=== PATIENT | male | born 1955 | race Caucasian/White ===

== ENCOUNTER 2020-02-08 12:56 | Outpatient (CLI) | payer OTHER, SELFPAY ==
--- NOTE | ~2020-02-08 | XR_ITS ---
EXAMINATION: XR lg joint inject/asp w image DATE: 02/08/2020 13:56 INDICATION: Left hip osteoarthritis TECHNIQUE: A time-out was performed to verify the patient's name, date of , and procedure to b e performed. The procedure including the risks, benefits, and alternatives was discussed with the pat ient. Risks discussed included bleeding and infection. The patient understood the risks and agreed to proceed. The skin overlying the left hip joint was prepped and draped in usual sterile fashion. An esthetic was administered with 1% lidocaine subcutaneously. A 22 G needle was advanced under fluoros copic guidance into the joint. Injection of 0.8 mL of Omnipaque 240 confirmed intra-articular positi on of the needle. Subsequently, injectate consisting of 3 mm of a 2:1 mixture of 0.5% Marcaine: 80 m g/mL Depo-Medrol for a total dosage of 80 mg Depo-Medrol was instilled. Washout of contrast was seen confirming intra-articular administration. The needle was removed and the entry site was cleaned and dressed. There were no immediate complications. Fluoroscopy exposure time was 0.1 minutes. The total number of images was 2. FINDINGS: Real-time fluoroscopy demonstrates the needle in the left hip joint. Patient's pain prior t o procedure:1/10. Patient's pain following the procedure: 0/10. IMPRESSION: 1. Left hip joint injection of local anesthetic and steroid with decrease in the patient's presenting pain. Reviewed, dictated and finalized at location A. IMPRESSION: 1. Left hip joint injection of local anesthetic and steroid with decrease in th e patient's presenting pain.
== END 2020-02-08 12:57 | disposition home or self-care (01) ==
PROVIDERS: PCP Family Medicine; Visit Provider Nurse Practitioner Family
DX: M16.12 Unilateral primary osteoarthritis, left hip (principal)
CPT/HCPCS: 20610; 77002; J1040; Q9966

== ENCOUNTER 2020-08-14 10:16 | Outpatient (CLI) | payer OTHER, SELFPAY ==
--- NOTE | ~2020-08-14 | XR_ITS ---
EXAMINATION: XR lg joint inject/asp w image DATE: 08/14/2020 11:06 INDICATION: Left hip osteoarthritis presenting with pain. TECHNIQUE: A time-out was performed to verify the patient's name, date of , and procedure to b e performed. The procedure including the risks, benefits, and alternatives was discussed with the pat ient. Risks discussed included bleeding and infection. The patient understood the risks and agreed to proceed. The skin overlying the left hip joint was prepped and draped in usual sterile fashion. An esthetic was administered with 1% lidocaine subcutaneously. A 22 G needle was advanced under fluoros copic guidance into the joint. Injection of 0.3 mL of Omnipaque 240 confirmed intra-articular positi on of the needle. Subsequently, injectate consisting of 3 mm of a 2:1 mixture of 0.5% bupivacaine: 8 0 mg/mL Depo-Medrol for a total dose of 80 mg Depo-Medrol was instilled. Washout of contrast was seen confirming intra-articular administration. The needle was removed and the entry site was cleaned and dressed. There were no immediate complications. Fluoroscopy exposure time was 0.1 minutes. The tota l number of images was 2. FINDINGS: Real-time fluoroscopy demonstrates the needle in the left hip joint. Patient's pain prior t o procedure:5/10. Patient's pain following the procedure: 5/10. IMPRESSION: 1. Left hip joint injection of local anesthetic and steroid with no interval change in patient's pres enting pain. Reviewed, dictated and finalized at location A. IMPRESSION: 1. Left hip joint injection of local anesthetic and steroid with no interval ch roosevelt in patient's presenting pain.
== END 2020-08-14 10:17 | disposition home or self-care (01) ==
PROVIDERS: PCP Family Medicine; Visit Provider Nurse Practitioner Family
DX: M16.12 Unilateral primary osteoarthritis, left hip (principal)
CPT/HCPCS: 20610; 77002; J1040; Q9966

== ENCOUNTER 2021-02-21 12:40 | Outpatient (CLI) | payer OTHER, SELFPAY ==
--- NOTE | ~2021-02-21 | XR_ITS ---
EXAMINATION: XR lg joint inject/asp w image DATE: 02/21/2021 13:26 INDICATION: Left hip arthritis with pain TECHNIQUE: A time-out was performed to verify the patient's name, date of , and procedure to b e performed. The procedure including the risks, benefits, and alternatives was discussed with the pat ient. Risks discussed included bleeding and infection. The patient understood the risks and agreed to proceed. The skin overlying the left hip joint was prepped and draped in usual sterile fashion. An esthetic was administered with 1% lidocaine subcutaneously. A 22 G needle was advanced under fluoros copic guidance into the joint. Injection of 1 mL of Omnipaque 240 confirmed intra-articular position of the needle. Subsequently, injectate consisting of 3 mL of a 2:1 mixture of 0.5% Marcaine: 80 mg/ mL Depo-Medrol for a total dosage of 80 mg Depo-Medrol was instilled. Washout of contrast was seen co nfirming intra-articular administration. The needle was removed and the entry site was cleaned and dr essed. There were no immediate complications. Fluoroscopy exposure time was 0.1 minutes. The total n umber of images was 2. Total DAP was 0.933 mGycm^2 FINDINGS: Real-time fluoroscopy demonstrates the needle in the left hip joint. Patient's pain prior t o procedure:0/10. Patient's pain following the procedure: 0/10. IMPRESSION: 1. Successful left hip joint injection of local anesthetic and steroid. Reviewed, dictated and finalized at location A.
== END 2021-02-21 12:41 | disposition home or self-care (01) ==
LOC: ANHIMG 12:43
PROVIDERS: PCP Family Medicine; Visit Provider Nurse Practitioner Family
DX: M16.12 Unilateral primary osteoarthritis, left hip (principal)
CPT/HCPCS: 20610; 77002; J1040; Q9966

== ENCOUNTER 2021-08-05 12:44 | Outpatient (CLI) | payer MEDICARE, OTHER, SELFPAY ==
--- NOTE | ~2021-08-05 | XR_ITS ---
EXAMINATION: XR lg joint inject/asp w image DATE: 08/05/2021 13:30 INDICATION: Left hip arthritis. TECHNIQUE: A time-out was performed to verify the patient's name, date of , and procedure to b e performed. The procedure including the risks, benefits, and alternatives was discussed with the pat ient. Risks discussed included bleeding and infection. The patient understood the risks and agreed to proceed. The skin overlying the left hip joint was prepped and draped in usual sterile fashion. An esthetic was administered with 1% lidocaine subcutaneously. A 22 G needle was advanced under fluoros copic guidance into the joint. Injection of 1 mL of Omnipaque 240 confirmed intra-articular position of the needle. Subsequently, injectate consisting of 2 mL 0.5% bupivacaine and 2 mL 40 mg/mL Depo-M edrol was instilled. The needle was removed and the entry site was cleaned and dressed. There were no immediate complications. Fluoroscopy exposure time was 0.1 minutes. The total number of images was 2. FINDINGS: Real-time fluoroscopy demonstrates the needle in the left hip joint. Patient's pain prior t o procedure:5/10. Patient's pain following the procedure: 0/10. IMPRESSION: 1. Fluoroscopy guided left hip joint injection of local anesthetic and steroid with decrease in the p atient's presenting pain. Reviewed, dictated and finalized at location A. IMPRESSION: 1. Fluoroscopy guided left hip joint injection of local anesthetic and steroid with decrease in the patient's presenting pain.
== END 2021-08-05 12:45 | disposition home or self-care (01) ==
LOC: ANHIMG 12:47
PROVIDERS: PCP Family Medicine; Visit Provider Nurse Practitioner Family
DX: M25.552 Pain in left hip (principal)
CPT/HCPCS: 20610; 77002; J1030; Q9966

== ENCOUNTER 2022-03-19 11:03 | Outpatient (CLI) | payer MEDICARE, OTHER, SELFPAY ==
--- NOTE | ~2022-03-19 | XR_ITS ---
EXAMINATION: XR lg joint inject/asp w image DATE: 03/19/2022 12:08 INDICATION: Left hip arthritis TECHNIQUE: A time-out was performed to verify the patient's name, date of , and procedure to b e performed. The procedure including the risks, benefits, and alternatives was discussed with the pat ient. Risks discussed included bleeding and infection. The patient understood the risks and agreed to proceed. The skin overlying the left hip joint was prepped and draped in usual sterile fashion. An esthetic was administered with 1% lidocaine subcutaneously. A 22 G needle was advanced under fluoros copic guidance into the joint. Injection of a small amount of gas confirmed intra-articular position of the needle. Subsequently, injectate consisting of 2 mL of a 2:1 mixture of 0.5% bupivacaine: 80 mg/mL Depo-Medrol for a total dosage of 80 mg Depo-Medrol was instilled. The needle was removed and t he entry site was cleaned and dressed. There were no immediate complications. Fluoroscopy exposure t portia was 0.1 minutes. Total DAP was 0.566 Gycm^2 The total number of images was 2. FINDINGS: Real-time fluoroscopy demonstrates the needle in the left hip joint. Patient's pain prior t o procedure:2/10. Patient's pain following the procedure: 0/10. IMPRESSION: 1. Left hip joint injection of local anesthetic and steroid with decrease in the patient's presenting pain. Reviewed, dictated and finalized at location A. IMPRESSION: 1. Left hip joint injection of local anesthetic and steroid with decrease in th e patient's presenting pain.
== END 2022-03-19 11:04 | disposition home or self-care (01) ==
PROVIDERS: Visit Provider Nurse Practitioner Family
DX: M16.12 Unilateral primary osteoarthritis, left hip (principal)
CPT/HCPCS: 20610; 77002; J1040

== ENCOUNTER 2022-07-21 13:00 | Outpatient (CLI) | payer MEDICARE, OTHER, SELFPAY ==
--- NOTE | ~2022-07-21 | XR_ITS ---
EXAMINATION: XR lg joint inject/asp w image DATE: 07/21/2022 13:57 INDICATION: Left hip arthritis. TECHNIQUE: A time-out was performed to verify the patient's name, date of , and procedure to b e performed. The procedure including the risks, benefits, and alternatives was discussed with the pat ient. Risks discussed included bleeding and infection. The patient understood the risks and agreed to proceed. The skin overlying the left hip joint was prepped and draped in usual sterile fashion. An esthetic was administered with 1% lidocaine subcutaneously. A 22 G needle was advanced under fluoros copic guidance into the joint. Subsequently, injectate consisting of 2 mL 0.5% bupivacaine and 1 mL 80 mg/mL Depo-Medrol was instilled. The needle was removed and the entry site was cleaned and dresse d. There were no immediate complications. Fluoroscopy exposure time was 0.1 minutes. The total numbe r of images was 1. FINDINGS: Real-time fluoroscopy demonstrates the needle in the left hip joint. Patient's pain prior t o procedure:5/10. Patient's pain following the procedure: 0/10. IMPRESSION: 1. Fluoroscopy guided left hip joint injection of local anesthetic and steroid with decrease in the p atient's presenting pain. Reviewed, dictated and finalized at location A. PS [employer] IMPRESSION: 1. Fluoroscopy guided left hip joint injection of local anesthetic and steroid with decrease in the patient's presenting pain.
== END 2022-07-21 13:01 | disposition home or self-care (01) ==
PROVIDERS: Visit Provider Nurse Practitioner Family
DX: M16.12 Unilateral primary osteoarthritis, left hip (principal)
CPT/HCPCS: 20610; 77002; J1040

== ENCOUNTER 2022-11-23 12:59 | Outpatient (CLI) | payer MEDICARE, OTHER, SELFPAY ==
--- NOTE | ~2022-11-23 | XR_ITS ---
EXAMINATION: XR lg joint inject/asp w image DATE: 11/23/2022 13:42 INDICATION: Left hip arthritis. TECHNIQUE: A time-out was performed to verify the patient's name, date of , and procedure to b e performed. The procedure including the risks, benefits, and alternatives was discussed with the pat ient. Risks discussed included bleeding and infection. The patient understood the risks and agreed to proceed. The skin overlying the left hip joint was prepped and draped in usual sterile fashion. An esthetic was administered with 1% lidocaine subcutaneously. A 22 G needle was advanced under fluoros copic guidance into the joint. Subsequently, injectate consisting of 2 mL 0.5% bupivacaine and 1 mL 80 mg/mL Depo-Medrol was instilled. The needle was removed and the entry site was cleaned and dresse d. There were no immediate complications. Fluoroscopy exposure time was 0.1 minutes. The total numbe r of images was 1. FINDINGS: Real-time fluoroscopy demonstrates the needle in the left hip joint. Patient's pain prior t o procedure:2/10. Patient's pain following the procedure: 0/10. IMPRESSION: 1. Fluoroscopy guided left hip joint injection of local anesthetic and steroid with decrease in the p atient's presenting pain. Reviewed, dictated and finalized at location A. IMPRESSION: 1. Fluoroscopy guided left hip joint injection of local anesthetic and steroid with decrease in the patient's presenting pain.
== END 2022-11-23 13:00 | disposition home or self-care (01) ==
PROVIDERS: Visit Provider Orthopaedic Surgery
DX: M16.12 Unilateral primary osteoarthritis, left hip (principal)
CPT/HCPCS: 20610; 77002; J1040

== ENCOUNTER 2023-04-29 13:35 | Outpatient (CLI) | payer MEDICARE, OTHER, SELFPAY ==
--- NOTE | ~2023-04-29 | XR_ITS ---
EXAMINATION: XR lg joint inject/asp w image DATE: 04/29/2023 14:32 INDICATION: Left hip osteoarthritis with pain TECHNIQUE: A time-out was performed to verify the patient's name, date of , and procedure to b e performed. The procedure including the risks, benefits, and alternatives was discussed with the pat ient. Risks discussed included bleeding and infection. The patient understood the risks and agreed to proceed. The skin overlying the left hip joint was prepped and draped in usual sterile fashion. An esthetic was administered with 1% lidocaine subcutaneously. A 22 G needle was advanced under fluoros copic guidance into the joint. Injection of 1 mL of Omnipaque 240 confirmed intra-articular position of the needle. Subsequently, injectate consisting of left hip was instilled. Washout of contrast wa s seen confirming intra-articular administration. The needle was removed and the entry site was clean ed and dressed. There were no immediate complications. Fluoroscopy exposure time was 0.1 minutes. Th e total number of images was 2. FINDINGS: Real-time fluoroscopy demonstrates the needle in the left hip joint. Patient's pain prior t o procedure:3/10. Patient's pain following the procedure: 0/10. IMPRESSION: 1. Successful left hip joint injection of local anesthetic and steroid with decrease in the patient's presenting pain. Reviewed, dictated and finalized at location A. [employer] IMPRESSION: 1. Successful left hip joint injection of local anesthetic and steroid with dec rease in the patient's presenting pain.
== END 2023-04-29 13:36 | disposition home or self-care (01) ==
LOC: ANHIMG 13:48
PROVIDERS: Visit Provider Nurse Practitioner Family
DX: M16.12 Unilateral primary osteoarthritis, left hip (principal)
CPT/HCPCS: 20610; 77002; J1040; Q9966

== ENCOUNTER 2023-10-13 09:22 | Outpatient (CLI) | payer MEDICARE, OTHER, SELFPAY ==
--- NOTE | 2023-10-13 09:57 | ECG_ITS ---
SEE SCANNED COPY FOR CONFIRMED REPORT MTDD
[2023-10-13 10:24] LABS: Basophils Percent Auto 0.6 % (0.2-1.2); Eosinophils Absolute Auto 0.1 K/mm3 (0-0.3); Eosinophils Percent Auto 1.3 % (0-4.4); Hematocrit 47.7 % (42.0-52.0); Hemoglobin 15.9 g/dL (14.0-18.0); Immature Granulocyte Absolute 0.06 K/mm3 (0.00-0.031); Immature Granulocyte Percent A 0.9 % (0-0.5); Immature Platelet Fraction Pct 8.3 % (0.9-11.2); Lymphocytes Percent Auto 28.7 % (18.3-44.2); Mean Corpuscular HGB Conc 33.3 g/dl (32-36); Mean Corpuscular Hemoglobin 31.6 pg (26-34); Mean Corpuscular Volume 94.8 fl (80-100); Mean Platelet Volume 12.1 fl (7.4-10.4); Monocytes Absolute Auto 0.5 K/mm3 (0.1-0.6); Monocytes Percent Auto 7.6 % (2.6-8.5); Neutrophils Absolute Auto 4.3 K/mm3 (1.3-6.7); Neutrophils Percent Auto 60.9 % (45.5-73.1); Platelet Count Result 176 k/mm3 (150-375); Red Blood Count 5.03 M/mm3 (4.6-6.20); Red Cell Distribution Width 13.5 % (11.5-14.5)
[2023-10-13 10:39] LABS: Anion Gap 6 mmol/L (4-12); Blood Urea Nitrogen 30 mg/dL (9-20); Calcium 9.6 mg/dL (8.4-10.2); Carbon Dioxide 31 mmol/L (22-30); Chloride 103 mmol/L (98-107); Estimated Glomerular Filt Rate > 60; Glucose 117 mg/dL (65-110); Potassium 3.6 mmol/L (3.4-5.0); Sodium 140 mmol/L (137-145)
== END 2023-10-13 09:23 | disposition home or self-care (01) ==
PROVIDERS: Visit Provider Orthopaedic Surgery
DX: E78.00 Pure hypercholesterolemia, unspecified (principal); I10 Essential (primary) hypertension; M16.9 Osteoarthritis of hip, unspecified; R53.83 Other fatigue
CPT/HCPCS: 36415; 80048; 85025; 85055; 93005

== ENCOUNTER 2023-10-29 13:47 | Outpatient (CLI) | payer MEDICARE, OTHER, SELFPAY ==
--- NOTE | ~2023-10-29 | XR_ITS ---
EXAMINATION: XR lg joint inject/asp add DATE: 10/29/2023 14:25 INDICATION: Left hip arthritis. TECHNIQUE: A time-out was performed to verify the patient's name, date of , and procedure to b e performed. The procedure including the risks, benefits, and alternatives was discussed with the pat ient. Risks discussed included bleeding and infection. The patient understood the risks and agreed to proceed. The skin overlying the left hip joint was prepped and draped in usual sterile fashion. An esthetic was administered with 1% lidocaine subcutaneously. A 22 G needle was advanced under fluoros copic guidance into the joint. Subsequently, injectate consisting of 2 mL 0.5% bupivacaine and 1 mL 8 0 mg/mL Depo-Medrol was instilled. The needle was removed and the entry site was cleaned and dressed . There were no immediate complications. Fluoroscopy exposure time was 0.1 minutes. The total number of images was 1. FINDINGS: Real-time fluoroscopy demonstrates the needle in the left hip joint. Patient's pain prior t o procedure:11/30. Patient's pain following the procedure: 06/02. IMPRESSION: 1. Fluoroscopy guided left hip joint injection of local anesthetic and steroid with decrease in the p atient's presenting pain. Reviewed, dictated and finalized at location A. IMPRESSION: 1. Fluoroscopy guided left hip joint injection of local anesthetic and steroid with decrease in the patient's presenting pain.
== END 2023-10-29 13:48 | disposition home or self-care (01) ==
LOC: ANHIMG 13:50
PROVIDERS: Visit Provider Orthopaedic Surgery
DX: M16.12 Unilateral primary osteoarthritis, left hip (principal)
CPT/HCPCS: 20610; J1010

== ENCOUNTER 2024-03-09 16:15 | Outpatient (RCR) | payer MEDICARE, OTHER, SELFPAY | END 2024-03-20 07:48 | disposition home or self-care (01) | LOC: ANHCPREHAB 16:15 | PROVIDERS: Visit Provider Internal Medicine Cardiovascular Disease | DX: Z95.5 Presence of coronary angioplasty implant and graft (principal) | CPT/HCPCS: 93798 ==

== ENCOUNTER 2024-03-15 13:36 | Outpatient (CLI) | payer MEDICARE, OTHER, SELFPAY ==
--- NOTE | ~2024-03-15 | XR_ITS ---
EXAMINATION: XR lg joint inject/asp w image DATE: 03/15/2024 14:31 INDICATION: Left hip arthritis. TECHNIQUE: A time-out was performed to verify the patient's name, date of , and procedure to b e performed. The procedure including the risks, benefits, and alternatives was discussed with the pat ient. Risks discussed included bleeding and infection. The patient understood the risks and agreed to proceed. The skin overlying the left hip joint was prepped and draped in usual sterile fashion. An esthetic was administered with 1% lidocaine subcutaneously. A 22 G needle was advanced under fluoros copic guidance into the joint. Injection of 1 mL of Omnipaque 240 confirmed intra-articular position of the needle. Subsequently, injectate consisting of 2 mL 0.5% bupivacaine and 1 mL 80 mg/mL Depo-M edrol was instilled. The needle was removed and the entry site was cleaned and dressed. There were no immediate complications. Fluoroscopy exposure time was 0.1 minutes. The total number of images was 2. FINDINGS: Real-time fluoroscopy demonstrates the needle in the left hip joint. Patient's pain prior t o procedure:07/31. Patient's pain following the procedure: 07/31. IMPRESSION: 1. Fluoroscopy guided left hip joint injection of local anesthetic and steroid. Reviewed, dictated and finalized at location A.
== END 2024-03-15 13:37 | disposition home or self-care (01) ==
PROVIDERS: Visit Provider Orthopaedic Surgery
DX: M16.12 Unilateral primary osteoarthritis, left hip (principal)
CPT/HCPCS: 20610; 77002; J1010; Q9966

== ENCOUNTER 2024-05-01 14:13 | Outpatient (CLI) | payer MEDICARE, OTHER, SELFPAY ==
--- NOTE | 2024-05-01 14:42 | ECG_ITS ---
Test Date: 2024-05-01 14:50:31 Measurements Intervals [place] Rate: 65 P: -6 CO: 120 QRS: 6 QRSD: 99 T: 51 QT: 409 QTc: 428 Interpretive Statements SINUS RHYTHM No previous ECG available for comparison Electronically Signed On 05-01-2024 15:18:07 [employer]IST[employer] by Ruel Herrmann M.D.
[2024-05-01 15:00] LABS: Basophils Absolute Auto 0.1 K/mm3 (0.0-0.1); Basophils Percent Auto 0.7 % (0.2-1.2); Eosinophils Absolute Auto 0.2 K/mm3 (0-0.3); Eosinophils Percent Auto 2.5 % (0-4.4); Hematocrit 45.5 % (42.0-52.0); Hemoglobin 15.5 g/dL (14.0-18.0); Immature Granulocyte Absolute 0.11 K/mm3 (0.00-0.031); Immature Granulocyte Percent A 1.4 % (0-0.5); Lymphocytes Absolute Auto 1.76 K/mm3 (0.9-3.2); Lymphocytes Percent Auto 22.9 % (18.3-44.2); Mean Corpuscular HGB Conc 34.1 g/dl (32-36); Mean Corpuscular Volume 93.8 fl (80-100); Mean Platelet Volume 11.1 fl (7.4-10.4); Monocytes Absolute Auto 0.8 K/mm3 (0.1-0.6); Monocytes Percent Auto 9.8 % (2.6-8.5); Neutrophils Absolute Auto 4.8 K/mm3 (1.3-6.7); Neutrophils Percent Auto 62.7 % (45.5-73.1); Platelet Count Result 210 k/mm3 (150-375); Red Blood Count 4.85 M/mm3 (4.6-6.20); Red Cell Distribution Width 12.9 % (11.5-14.5); White Blood Count 7.7 K/mm3 (4.5-10.0)
[2024-05-01 15:11] LABS: Add Urine Microscopic? NO; Appearance Urine Clear (Clear); Bilirubin Urine Negative (Negative); Blood Urine Negative (Negative); Color Urine Yellow (Yellow); Glucose Urine UA Negative (Negative); Ketones Urine Negative (Negative); Leukocyte Esterase Ur Negative LEU/UL (Negative); Nitrate Urine Negative (Negative); Protein Urine Negative (Negative); Specific Grav Ur 1.026 (1.001-1.035); Urobilinogen Urine 0.2 mg/dL (<2.0)
[2024-05-01 15:14] LABS: Anion Gap 7 mmol/L (4-12); Blood Urea Nitrogen 37 mg/dL (9-20); Calcium 9.7 mg/dL (8.4-10.2); Carbon Dioxide 30 mmol/L (22-30); Chloride 103 mmol/L (98-107); Estimated Glomerular Filt Rate > 60; Glucose 109 mg/dL (65-110); Potassium 3.6 mmol/L (3.4-5.0); Sodium 140 mmol/L (137-145)
== END 2024-05-01 14:14 | disposition home or self-care (01) ==
PROVIDERS: Visit Provider Nurse Practitioner Family
DX: I10 Essential (primary) hypertension (principal); E78.00 Pure hypercholesterolemia, unspecified; R53.83 Other fatigue; M25.559 Pain in unspecified hip
CPT/HCPCS: 36415; 80048; 81003; 85025; 93005

== ENCOUNTER 2024-06-21 13:45 | Outpatient (CLI) | payer MEDICARE, OTHER, SELFPAY ==
--- OUTSIDE RECORDS SUMMARY | 2024-06-21 03:13 | XMS_ITS | Referral Summary ---
Author Organization [facility] at [facility] Address [address] [place] [address] Care Team Providers Care Traveling Plant Operator Name Role Phone Benigno GONSALEZ MD, Eddy Wood Primary Care Provid er Encounters Date Type Department Care Team Description 06/15/2024 3:15 PM ONCOLOGY PHARMACIST Office Visit [facility] [address] [place] [address] [place] [phone] Davin Kaur MD Dyspnea, unspecified type (Primary Dx) 06/08/2024 2:15 PM ONCOLOGY PHARMACIST Office Visit [facility] [address] [facility] [address] [place] [address] Melvi Engel NP Bilateral carotid artery stenosis (Primary Dx); Secondary hypertension; Mixed hyperlipidemia 06/08/2024 1:30 PM ONCOLOGY PHARMACIST - 06/08/2024 11:59 PM ONCOLOGY PHARMACIST Hospital Encounter [facility] Medical Office Building 2 Vascular [address] [facility] [address] [place] [address] Bilateral carotid artery stenosis Discharge Disposition: Discharge to home or self care 06/06/2024 3:30 PM ONCOLOGY PHARMACIST Office Visit [facility] [address] [facility] [address] [place] [address] Anoop Villeda Si, MD Multiple lacunar infarcts (HCC) (Primary Dx); Bilateral carotid artery stenosis 05/02/2024 Telephone [facility] [address] [place] [address] [place] [phone] Davin Kaur MD Cardiac clearance request for left total hip athroplasty from Last 3 Months Allergies Active Allergy Reactions Criticality Noted Date Comments Amoxicillin Itching Low 04/20/2014 Per chart records, ceftriaxone was administered 08/2022 Medications amLODIPine (NORVASC) 5 mg tablet Take 1 tablet (5 mg total) by mouth daily 06/26/19 21 Active metoprolol XL (TOPROL-XL) 25 mg extended release tablet Take 1 tablet (25 mg total) by mouth daily 06/26/19 21 Active simvastatin (ZOCOR) 40 mg tablet Take 1 tablet (40 mg total) by mouth daily 06/26/19 21 Active folic acid/multivit- min/lutein (CENTRUM SILVER ORAL) Take 1 tablet by mouth daily Active aspirin 81 mg enteric coated tabletIndicati ons:cerebral ischemia Take 1 tablet (81 mg total) by mouth daily 30 tablet 11 04/05/20 23 Active fluticasone propionate (FLONASE) 50 mcg/actuation nasal spray Administer 2 sprays into affected nostril(s) daily 09/09/19 24 Active clopidogreL (PLAVIX) 75 mg tablet Take 1 tablet (75 mg total) by mouth daily 30 tablet 11/08/19 24 025 Active hydroCHLOROthi azide 12.5 mg tablet Take 1 tablet (12.5 mg total) by mouth daily 30 tablet 06/15/19 25 Active acetaminophen (TYLENOL) 500 mg tablet Take 1-2 tablets (500-1,000 mg total) by mouth every 6 (six) hours as needed for pain 025 Discontinued(Th erapy completed) hydroCHLOROthi azide 12.5 mg tablet Take 1 tablet (12.5 mg total) by mouth daily 30 tablet 12/08/19 24 025 Discontinued hydroCHLOROthi azide (HYDRODIURIL) 25 mg tablet 03/24/20 24 025 Discontinued(Re order) Active Problems Problem Noted Date Diagnosed Date Dyspnea 10/13/2023 Bilateral carotid artery stenosis 05/13/2023 Assessment & Plan (06/09/2024 11:02 AM ONCOLOGY PHARMACIST): Remains asymptomatic. Moderate left ICA stenosis. Continue aspirin statin therapy and continue risk factor modifications. Follow-up in 1 year for routine surveillance with carotid duplex. Assessment & Plan (06/16/2023 11:08 AM ONCOLOGY PHARMACIST): Stable. After long discussion with the patient about his history I do not feel that this was a symptomatic carotid stenosis that led to his hospitalization. This is supported by the timeline and prior occurrence. Recommend ongoing medical therapy follow up 6 months with carotid duplex. Assessment & Plan (05/14/2023 10:45 AM ONCOLOGY PHARMACIST): CTA of the head and neck per stroke protocol 04/03/2023 shows a patent right carotid artery and a moderate stenosis to the left internal carotid artery. Patient is currently on aspirin and cholesterol medication. Denies any recurrent episodes since discharge from the hospital. Plan: Obtain a carotid duplex follow-up in 2 weeks. Osteoarthritis of left hip 04/09/2023 TIA (transient ischemic attack) 04/03/2023 BPH (benign prostatic hyperplasia) 04/03/2023 Hyperlipidemia 04/03/2023 Assessment & Plan (06/16/2023 11:07 AM ONCOLOGY PHARMACIST): Hyperlipidemia chronic and controlled. Continue Zocor. Hypertension 04/03/2023 Assessment & Plan (06/16/2023 11:07 AM ONCOLOGY PHARMACIST): Hypertension chronic and controlled. Continue current medical management. Dizziness and giddiness 08/18/2022 Assessment & Plan (08/18/2022 9:01 PM CDT): I talked with him about further evaluation. I think a lot of his balance difficulty comes from his neck problems. We can do some further testing on his inner ear. He felt like things were getting so much better that he would like to go ahead and hold off on that. He will return if problems continue. Sensorineural hearing loss (SNHL) of both ears 0 08/18/2022 Assessment & Plan (08/18/2022 9:02 PM CDT): He is high-frequency sensorineural hearing loss and we talked about that. He is already aware that he has had that. He has had some noise exposure. We talked about the additional low-frequency loss on the left side. His discrimination scores down to 88% on that side also. I suggested getting an MRI scan to further evaluate for an 8th nerve tumor. I did not feel that it was imperative however and he would like to wait and see how things go. He will call me if he changes his mind. Otherwise follow up with me as needed. Cervical spondylosis without myelopathy 04/27/20 14 Immunizations Name Administration Dates Next Due Influenza, Quadrivalent, Manjula l Culture-based MDCK, Preservative Free, Antibiotic Free, Intramuscular 02/23/2020 Influenza, Unspecified 02/23/2020 Tdap 05/03/2012 Social History Tobacco Use Types Packs/Day Years Used Date Smoking Tobacco: Former Cigarettes 1 31 Q uit: 03/30/2004 Smokeless Tobacco: Never Tobacco Cessation:Counseling Given: Not Answered [facility] Usersnapities Answer Date Recorded In the past 12 months has [employer], gas, oil, or water [employer] threatened to shut off services in your home? No 2023 Social Connection and Isolat ion Panel [NHANES] Answer Date Recorded In a typical week, how many times do you talk on the phone with family, friends, or neighbors? More than three times a week 2023 How often do you get togethe r with friends or relatives? More than three times a week 2023 How often do you attend chur ch or mormon services? Never 2023 Do you belong to any clubs o r organizations such as methodist groups, unions, fraternal or athletic groups, or school groups? No 2023 How often do you attend meet ings of the clubs or organizations you belong to? Never 2023 Are you , , di vorced, , never , or living with a partner? 2023 AUDIT-C Answer Date Recorded Q1: How often do you have a drink containing alc ohol? Monthly or less 10/19/2023 Q2: How many drinks containi ng alcohol do you have on a typical day when you are drinking? 1 or 2 10/19/2023 Q3: How often do you have si x or more drinks on one occasion? Never 10/19/2023 Overall Financial Resource Strain (CARDIA) Answe r Date Recorded How hard is it for you to pa y for the very basics like food, housing, medical care, and heating? Not hard at all 2023 Hunger Vital Sign Answer Date Recorded Within the past 12 months, y ou worried that your food would run out before you got the money to buy more. Never true 04/05/20 23 Within the past 12 months, t he food you bought just didn't last and you didn't have money to get more. Never true 2023 PRAPARE - Transportation Answer Date Re corded In the past 12 months, has l ack of transportation kept you from medical appointments or from getting medications? No 03/24 In the past 12 months, has l ack of transportation kept you from meetings, work, or from getting things needed for daily living? No 2023 Housing Stability Vital Sign Answer Petar e Recorded In the last 12 months, was t here a time when you were not able to pay the mortgage or rent on time? No 2023 In the last 12 months, how many places have you lived? 1 2023 In the last 12 months, was t here a time when you did not have a steady place to sleep or slept in a mcfp (including now)? No 2023 Personal Safety Answer Date Recorded Have you ever been in or are you currently in a harmful physical or emotional relationship or is someone making you feel afraid or unsafe? 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 Not on file Not on file Not on file Last Filed Vital Signs Vital Sign Reading Time Taken Comments Blood Pressure 138/87 06/15/2024 3:18 PM ONCOLOGY PHARMACIST Pulse 77 06/15/2024 3:18 PM ONCOLOGY PHARMACIST Temperature 36.2 ??C (97.2 ??F) 11/08/2023 9:17 AM CD T Respiratory Rate 18 2023 11:2 4 AM ONCOLOGY PHARMACIST Oxygen Saturation 95% 06/15/2024 3:18 PM ONCOLOGY PHARMACIST Inhaled Oxygen Concentration - - Weight 100.4 kg (221 lb 6.4 oz) 06/15/2024 3:18 PM ONCOLOGY PHARMACIST Height 177.8 cm (5' 10 ) 06/15/2024 3:18 PM ONCOLOGY PHARMACIST Body Mass Index 31.77 06/15/2024 3:18 PM ONCOLOGY PHARMACIST Plan of Treatment Not on file Medical Devices Implanted Type Area Pharmaceutical Botanist Device Identifier Shelf Expiration Date Model / Serial / Lot Medtronic Card Vasc Surgery 2.50 X 22mm Geo [employer] Rx Coronary Stent [id number] - S0 - [id number] Implanted:Qty: 1 on 11/08/2023 by Davin Kaur MD at [facility] Stent Medtronic Card Vasc Surgery 10/29/2025 [id number] / 0 / [id number] Procedures Procedure Name Priority Date/Time Associated Diagnosis Comments US CAROTIDS DUPLEX BILATERAL Schedule Routine, Read Routine (OP Routine) 06/08/2024 2:14 PM ONCOLOGY PHARMACIST Bilateral carotid artery stenosis CT ABDOMEN PELVIS W CONTRAST ED 09/19/2022 2:38 PM CDT from Last 3 Months or Most Recently Relevant to Health Maintenance Results * US Carotids Duplex Bilateral (06/08/2024 2:14 PM ONCOLOGY PHARMACIST) Anatomical Region Laterality Modality Vascular Bilateral Ultrasound 06/08/2024 Narrative 06/10/2024 1:09 PM ONCOLOGY PHARMACIST INMAN Job ID: [id number] INMAN Document ID: [id number] Dictated date/time: [id number] CAROTID DUPLEX REASON FOR EXAM Carotid stenosis. COMMENTS ON THE RIGHT The peak systolic velocity of CCA is 65, ICA of 62. ??Smooth heterogenous plaque in the proximal ICA. ??ECA velocity is 91. Antegrade flow noted, vertebral artery velocity of 39. COMMENTS ON THE LEFT The peak systolic velocity of CCA is 58, ICA of 132, end-diastolic velocity 40. ??Smooth heterogenous plaque in the proximal ICA. ??ECA velocity 94. ??Antegrade flow noted, vertebral artery velocity of 42. OVERALL IMPRESSION 1. Less than 50% stenosis, right internal carotid artery, with 50% to 69% stenosis on the left. 2. Antegrade flow noted, bilateral vertebral arteries. Job ID/Internal Job ID: ??[id number] us [facility] US PROCEDURES Final Res ult * CT Abdomen Pelvis W Contrast (09/19/2022 2:38 PM CDT) Anatomical Region Laterality Modality Body N/A Computed Tomogra phy 09/19/2022 3:27 PM CDT Narrative 09/19/2022 3:47 PM CDT EXAM DESCRIPTION: ?? CT ABDOMEN PELVIS W CONTRAST REASON FOR STUDY: ?? RLQ abdominal pain, appendicitis suspected (Age => 15y), RUQ, RLQ tenderness with guarding. N/V ?? Pt reports Since Thrusday I've had some pain in my right upper abd and some nausea. ?Pt denies any vomiting, fevers, or diarrhea. ??Hx of hernia repair and cholecystectomy ? TECHNIQUE: CT scan of the abdomen and pelvis performed with intravenous and ?? without ??oral contrast using helical scanning technique with dynamic intravenous contrast injection. Reconstructed coronal and sagittal MPR images reviewed. All images stored on PACS. Automated exposure control was used as a dose optimization technique for this examination. CONTRAST TYPE/DOSE: ?? 100mL of IOVERSOL 350 MG IODINE/ML INTRAVENOUS SYRINGE ?? injected via ?? intravenous COMPARISON: ?? None available REFERENCE: Per ACR white paper recommendations, unless otherwise specified no follow-up imaging is recommended for incidental renal and adrenal lesions per consensus recommendations based on imaging criteria. Further lab evaluation could be pursued based on clinical findings. FINDINGS: LOWER CHEST: ?? No significant pulmonary abnormalities. No effusion. LIVER: ?? 8 mm low attenuating lesion with fluid attenuation, possibly hepatic cyst, within hepatic segment 5/7 (2:42). GALLBLADDER: ?? Surgically absent. BILE DUCTS: ?? No intrahepatic or extrahepatic ductal dilatation. SPLEEN: ?? Normal size. ??No focal lesions. PANCREAS: ?? No identified cystic or solid masses. No significant calcifications. No adjacent inflammation or peripancreatic fluid collections. Pancreatic duct not dilated. ?? ADRENALS: ?? Normal. KIDNEYS/URINARY TRACT: ?? 20 mm fluid attenuating lesion within the midpole of left kidney, likely cyst. ??Symmetric renal enhancement. ??No hydronephrosis or hydroureter. ?Urinary bladder is unremarkable. GI: ?? No dilated bowel loops. No obvious wall thickening. ??Normal appendix. ?? No significant diverticular disease. PERITONEUM: ?? No ascites or free air. RETROPERITONEUM: ?? No mass or adenopathy. REPRODUCTIVE: ?? No significant abnormality. VASCULATURE: ?? Atherosclerotic disease in the aorta, aortic branches, and iliacs MUSCULOSKELETAL: ?? Incidentally noted 22 mm fat attenuating lesion, likely lipoma within the left iliacus muscle anterior to the left femoral neck (2:153). OTHER: ?? No other abnormality. IMPRESSION: No acute findings in the abdomen or pelvis. ??The appendix is normal. THIS IS AN ELECTRONICALLY VERIFIED FINAL REPORT 09/19/2022 3:47 PM - Electronically signed by ??Helio Lyons M.D. WW: JERICHO D: ??09/19/2022 3:46 PM T: ??09/19/2022 3:47 PM Report ID: [id number] Reading Location: ??[id number] Procedure Note Helio Lyons MD PhD - 09/19/2022 EXAM DESCRIPTION: CT ABDOMEN PELVIS W CONTRAST REASON FOR STUDY: RLQ abdominal pain, appendicitis suspected (Age =>15y), RUQ, RLQ tenderness with guarding. N/V Pt reports Since Thrusday I've had some pain in my right upper abd andsome nausea. Pt denies any vomiting, fevers, or diarrhea. Hx of hernia repair and cholecystectomy TECHNIQUE: CT scan of the abdomen and pelvis performed with intravenousand without oral contrast using helical scanning technique with dynamic intravenous contrast injection. Reconstructed coronal and sagittal MPRimages reviewed. All images stored on PACS. Automated exposure control was used as a dose optimization technique forthis examination. CONTRAST TYPE/DOSE: 100mL of IOVERSOL 350 MG IODINE/ML INTRAVENOUSSYRINGE injected via intravenous COMPARISON: None available REFERENCE: Per ACR white paper recommendations, unless otherwise specifiedno follow-up imaging is recommended for incidental renal and adrenal lesionsper consensus recommendations based on imaging criteria. Further labevaluation could be pursued based on clinical findings. FINDINGS: LOWER CHEST: No significant pulmonary abnormalities. Noeffusion. LIVER: 8 mm low attenuating lesion with fluid attenuation, possiblyhepatic cyst, within hepatic segment 5/7 (2:42). GALLBLADDER: Surgically absent. BILE DUCTS: No intrahepatic or extrahepatic ductal dilatation. SPLEEN: Normal size. No focal lesions. PANCREAS: No identified cystic or solid masses. No significant calcifications. No adjacent inflammation or peripancreatic fluidcollections. Pancreatic duct not dilated. ADRENALS: Normal. KIDNEYS/URINARY TRACT: 20 mm fluid attenuating lesion within the midpoleof left kidney, likely cyst. Symmetric renal enhancement. No hydronephrosisor hydroureter. Urinary bladder is unremarkable. GI: No dilated bowel loops. No obvious wall thickening. Normalappendix. No significant diverticular disease. PERITONEUM: No ascites or free air. RETROPERITONEUM: No mass or adenopathy. REPRODUCTIVE: No significant abnormality. VASCULATURE: Atherosclerotic disease in the aorta, aortic branches, and iliacs MUSCULOSKELETAL: Incidentally noted 22 mm fat attenuating lesion, likely lipoma within the left iliacus muscle anterior to the left femoral neck (2:153). OTHER: No other abnormality. IMPRESSION: No acute findings in the abdomen or pelvis. The appendix is normal. THIS IS AN ELECTRONICALLY VERIFIED FINAL REPORT 09/19/2022 3:47 PM - Electronically signed by Helio Lyons M.D. WW: JERICHO Report ID: [id number] Reading Location: [place] [address] PROCEDURES Final Re sult from Last 3 Months or Most Recently Relevant to Health Maintenance Insurance MEDICARE [facility] PPO FOR LIFE MEDICARE FOR LIFE AETCAMRYN NAP Advance Directives For more information, please contact: [phone] * Full Code (Latest Code Status on File) Date Activated Date Inactivated Comments 11/08/2023 11:47 AM 11/08/2023 6:44 PM * Full Code Date Activated Date Inactivated Comments 10/19/2023 4:24 PM 10/19/2023 10:58 PM * Full Code Date Activated Date Inactivated Comments 04/04/2023 3:43 AM 2023 6:02 PM Care Teams Traveling Plant Operator Relationship Specialty Start Date End Date Eddy Pelaez II, MD PCP - General Family Practice 02/18/22
--- OUTSIDE RECORDS SUMMARY | 2024-06-21 03:13 | XMS_ITS | Clinical Summary ---
Author Organization [facility] Address [address] [place] [address] Care Team Providers Care Machine Packager Name Role Phone Benigno GONSALEZ MD, Eddy Wood Primary Care Provid er Allergies Active Allergy Reactions Criticality Noted Date [...] mg total) by mouth daily 30 tablet 04/05/20 23 Active fluticasone propionate (FLONASE) 50 [...] total) by mouth daily 30 tablet 11 12/08/19 24 025 Discontinued hydroCHLOROthi azide (HYDRODIURIL) 25 mg tablet 03/24/20 24 025 Discontinued(Re order) Active Problems Problem Noted Date Diagnosed Date Dyspnea 10/13/2023 Bilateral carotid artery stenosis 05/13/2023 Assessment & Plan (06/09/2024 11:02 AM ORTHODONTIC TECHNICIAN ASSISTANT): Remains asymptomatic. Moderate left ICA stenosis. Continue aspirin statin therapy and continue risk factor modifications. Follow-up in 1 year for routine surveillance with carotid duplex. Assessment & Plan (06/16/2023 11:08 AM ORTHODONTIC TECHNICIAN ASSISTANT): Stable. After long discussion with the patient about his history I do not feel that this was a symptomatic carotid stenosis that led to his hospitalization. This is supported by the timeline and prior occurrence. Recommend ongoing medical therapy follow up 6 months with carotid duplex. Assessment & Plan (05/14/2023 10:45 AM ORTHODONTIC TECHNICIAN ASSISTANT): CTA of the head and neck per [...] 04/03/2023 Assessment & Plan (06/16/2023 11:07 AM ORTHODONTIC TECHNICIAN ASSISTANT): Hyperlipidemia chronic and controlled. Continue Zocor. Hypertension 04/03/2023 Assessment & Plan (06/16/2023 11:07 AM ORTHODONTIC TECHNICIAN ASSISTANT): Hypertension chronic and controlled. Continue current medical [...] needed. Cervical spondylosis without myelopathy 04/27/20 14 Encounters Date Type Department Care Team Description 06/15/2024 3:15 PM ORTHODONTIC TECHNICIAN ASSISTANT Office Visit [facility] Cardiology [address] [place] [id number] Davin Kaur MD Dyspnea, unspecified type (Primary Dx) 06/08/2024 2:15 PM ORTHODONTIC TECHNICIAN ASSISTANT Office Visit [facility] Vascular and Vein Surgery [address] [place] [address] Melvi Engel NP Bilateral carotid artery stenosis (Primary Dx); Secondary hypertension; Mixed hyperlipidemia 06/08/2024 1:30 PM ORTHODONTIC TECHNICIAN ASSISTANT - 06/08/2024 11:59 PM ORTHODONTIC TECHNICIAN ASSISTANT Hospital Encounter [facility] Building 2 Vascular [address] [place] [address] Bilateral carotid artery stenosis Discharge Disposition: Discharge to home or self care 06/06/2024 3:30 PM ORTHODONTIC TECHNICIAN ASSISTANT Office Visit [facility] Neurology [address] [place] [phone] Anoop Villeda Si, MD Multiple lacunar infarcts (HCC) (Primary Dx); Bilateral carotid artery stenosis 05/02/2024 Telephone [facility] Cardiology [address] [place] [address] Davin Kaur MD Cardiac clearance request for left total hip athroplasty from Last 3 Months Immunizations Name Administration Dates Next Due Influenza, Quadrivalent, Manjula l Culture-based MDCK, Preservative Free, Antibiotic Free, Intramuscular 02/23/2020 Influenza, Unspecified 02/23/2020 Tdap 05/03/2012 Surgical History Surgery Date Site/Laterality Comments HERNIA REPAIR SPINAL FUSION 05/24/2015 - 05/23/2016 C3-C4, C5-C6 CARDIAC CATHETERIZATION 10/19/2023 ANGIOPLASTY 12/08/2023 CHOLECYSTECTOMY 1987 Medical History Medical History Date Comments Hyperlipidemia Hypertension Heart disease Kidney stone TIA (transient ischemic attack) 03/2023 Sleep apnea Family History Medical History Relation Name Comments Heart disease Father Kali Goldberg Stroke Father Kali Goldberg Blood Clot Mother Relation Name Status Comments Father Kali Goldberg Mother Social History Tobacco Use Types Packs/Day Years Used Date Smoking Tobacco: Former Cigarettes 1 31 Q uit: 03/30/2004 Smokeless Tobacco: Never Tobacco Cessation:Counseling Given: Not Answered [facility] Utilities Answer Date Recorded In the past 12 months has e electric, gas, oil, or water company threatened to shut off services in your [...] often do you attend chur ch or adventist services? Never 2023 Do you belong to any clubs o r organizations such as restorationist groups, unions, fraternal or athletic groups, or [...] place to sleep or slept in a group home (including now)? No 2023 Personal Safety Answer Date Recorded Have you ever been in or are you currently in a harmful physical or emotional relationship or is someone making you feel afraid or unsafe? 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 Not on file Not on file Obstetrics History Last Filed Vital Signs Vital Sign Reading Time Taken Comments Blood Pressure 138/87 06/15/2024 3:18 PM ORTHODONTIC TECHNICIAN ASSISTANT Pulse 77 06/15/2024 3:18 PM ORTHODONTIC TECHNICIAN ASSISTANT Temperature 36.2 ??C (97.2 ??F) 11/08/2023 9:17 AM CD T Respiratory Rate 18 2023 11:2 4 AM ORTHODONTIC TECHNICIAN ASSISTANT Oxygen Saturation 95% 06/15/2024 3:18 PM ORTHODONTIC TECHNICIAN ASSISTANT Inhaled Oxygen Concentration - - Weight 100.4 kg (221 lb 6.4 oz) 06/15/2024 3:18 PM ORTHODONTIC TECHNICIAN ASSISTANT Height 177.8 cm (5' 10 ) 06/15/2024 3:18 PM ORTHODONTIC TECHNICIAN ASSISTANT Body Mass Index 31.77 06/15/2024 3:18 PM ORTHODONTIC TECHNICIAN ASSISTANT Plan of Treatment Health Maintenance Due Date Last Done Comments Colon Cancer Screening-Colonoscopy 1955 Depression Screening 1955 Hepatitis C Screening 1955 Prostate Cancer Screening-PSA 1956 Hepatitis B Screening 1974 Zoster Vaccine (1 of 2) 2006 Pneumococcal vaccine 65+ (1 of 1 - PCV) 2021 Well Visit 65+ 2021 DTaP/Tdap/Td Vaccine (2 - Td or Tdap) 05/03/202203/2012 Covid-19 Vaccine ( - season) 2024 06/04/2021, 07/16/2020, 06/26/2020 Influenza Vaccine (#1) 2024 02/23/2020, 2019 Fall Risk Assessment 2024 2023 Abdominal Aortic Aneurysm (A AA) Screen Completed 09/19/2022 Medical Devices Implanted Type Area Bottle Hop Device Identifier Shelf Expiration Date Model / Serial / Lot Medtronic Card Vasc Surgery 2.50 X 22mm Dovray Angelina Rx Coronary Stent [id number] - S0 - [id number] Implanted:Qty: 1 on 11/08/2023 by Davin Kaur MD at [facility] Stent Medtronic Card Vasc Surgery 10/29/2025 [id number] / 0 / [id number] Procedures Procedure Name Priority Date/Time Associated Diagnosis Comments US CAROTIDS DUPLEX BILATERAL Schedule Routine, Read Routine (OP Routine) 06/08/2024 2:14 PM ORTHODONTIC TECHNICIAN ASSISTANT Bilateral carotid artery stenosis CT ABDOMEN PELVIS W CONTRAST ED 09/19/2022 2:38 PM CDT from Last 3 Months or Most Recently Relevant to Health Maintenance Results * US Carotids Duplex Bilateral (06/08/2024 2:14 PM ORTHODONTIC TECHNICIAN ASSISTANT) Anatomical Region Laterality Modality Vascular Bilateral Ultrasound 06/08/2024 Narrative 06/10/2024 1:09 PM ORTHODONTIC TECHNICIAN ASSISTANT [employer] Job ID: [id number] [employer] Document ID: [id number] Dictated date/time: [id number] CAROTID DUPLEX REASON FOR EXAM Carotid stenosis. [...] bilateral vertebral arteries. Job ID/Internal Job ID: ??[id number] us Pauline BAIN IMArmand US PROCEDURES Final Res ult * CT [...] PM T: ??09/19/2022 3:47 PM Report ID: [id number] Reading Location: ??[id number] Procedure Note Helio Lyons MD PhD - [...] Helio Lyons M.D. WW: JERICHO Report ID: [id number] Reading Location: [id number] Tad BAIN IMG CT PROCEDURES Final Re sult from Last 3 Months or Most Recently Relevant to Health Maintenance Insurance MEDICARE [facility] Address: [address] [address] [place] [address] [facility] ison furniture MEDICARE [facility] Advance Directives For more information, please contact: [phone] * Full Code (Latest Code Status on File) Date Activated Date Inactivated Comments 11/08/2023 11:47 AM 11/08/2023 6:44 PM * Full Code Date Activated Date Inactivated Comments 10/19/2023 4:24 PM 10/19/2023 10:58 PM * Full Code Date Activated Date Inactivated Comments 04/04/2023 3:43 AM 2023 6:02 PM Care Teams Machine Packager Relationship Specialty Start Date End Date Eddy Pelaez II, MD PCP - General Family Practice 02/18/22
--- OUTSIDE RECORDS SUMMARY | 2024-06-21 03:13 | XMS_ITS | Patient Health Summary ---
Author Organization [facility] Address [address] [place] [address] Care Team Providers Care Tile Conduit Layer Name Role Phone Unavailable Primary Care Provider Unavailabl e Note from [facility],non-owned Affiliates and Associated Physician Practices is amultiple site organization consisting of ambulatory clinics and hospital sitesin [place] and [place]. This disclosure is being madepursuant to the Care Everywhere program and may not contain all information available regarding this patient. Last updated 18.[facility] Immunizations * Covid Pfizer primary monovalent 12+ yr 0.3mL Purple cap(Given 07/16/2020, 06/26/2020) Social History Tobacco Use Types Packs/Day Years Used Date Smoking Tobacco: Never Assessed Sex and Gender Information Value Date Recorded Sex Assigned at Not on file Gender Identity Not on file Sexual Orientation Not on file
--- OUTSIDE RECORDS SUMMARY | 2024-06-21 03:13 | XMS_ITS | Clinical Summary ---
Author Organization [facility] Address [address] [place] [address] Care Team Providers Care Mamma Logist Name Role Phone Unavailable Primary Care Provider Unavailabl e Source Comments [facility],non-owned Affiliates and Associated Physician Practices is amultiple site organization consisting of ambulatory clinics and hospital sitesin [place] and [place]. This disclosure is being madepursuant to the Care Everywhere program and may not contain all information available regarding this patient. Last updated 18.[facility] Immunizations Name Administration Dates Next Due Covid Pfizer primary monoval ent 12+ yr 0.3mL Purple cap 07/16/2020,06/26/2020 Social History Tobacco Use Types Packs/Day Years Used Date Smoking Tobacco: Never Assessed Sex and Gender Information Value Date Recorded Sex Assigned at Not on file Gender Identity Not on file Sexual Orientation Not on file Plan of Treatment Health Maintenance Due Date Last Done Comments COLOGUARD (AGES 45-75) - COL ON CA SCREENING 1956 COLON MONITORING 1956 COLONOSCOPY - COLON CA SCREENING 1956 CT COLONOGRAPHY - COLON CA SCREENING 1955 Colorectal Cancer Screening 1956 FIT - COLON CA SCREENING 1956 FLEX SIG - COLON CA SCREENING 1956 LIPID TESTING 1956 HEPATITIS C SCREENING 04/01/1974 DTAP/TDAP/TD VACCINES (1 - Tdap) 1975 PNEUMOCOCCAL VACCINE 50+ (1 of 1 - PCV) 2006 ZOSTER VACCINE (1 of 2) 2006 COVID-19 VACCINE (3 - 2023-2 5 season) 2024 07/16/2020, 06/26/2020 INFLUENZA VACCINE (#1) 2024 DEPRESSION SCREENING 05/24/2024 Respiratory Syncytial Virus (RSV) Vaccine Pt: or over 60 yrs (1 - 1-dose 75+ series) 2031 HEPATITIS B VACCINE Aged Out No longe r eligible based on patient's age to complete this topic HIB VACCINE Aged Out No longer eligi ble based on patient's age to complete this topic HPV VACCINE Aged Out No longer eligi ble based on patient's age to complete this topic MENINGOCOCCAL (Group B) VACCINE Aged Out No longer eligible b ased on patient's age to complete this topic MENINGOCOCCAL VACCINE Aged Out No mana mayelin eligible based on patient's age to complete this topic
--- OUTSIDE RECORDS SUMMARY | 2024-06-21 03:13 | XMS_ITS | Clinical Summary ---
Author Organization [facility] Address [address] [place] [address]. [place] [address] [place] [address] Care Team Providers Care Heel Breaster Name Role Phone Benigno GONSALEZ MD, Eddy Gilliland Primary Care Provider Allergies Active Allergy Reactions Criticality Noted Date Comments Amoxicillin Itching Low 04/20/2014 Medications Multiple Vitamins-Minerals (CENTRUM ADULTS OR) Take 1 tablet by mouth daily. Active amLODIPine (NORVASC) 5 MG tabletIndications: Primary hypertension Take 1 tablet (5 mg total) by mouth daily. 90 tablet 3 08/19/19 24 Active hydroCHLOROthiazid e (HYDRODIURIL) 25 MG tabletIndications: Primary hypertension Take 1 tablet (25 mg total) by mouth every morning. 90 tablet 3 09/09/19 24 Active Additional Information Patient taking differently: 12.5 mgOral Every morning, Reported on 06/19/2024 fluticasone propionate (FLONASE) 50 MCG/ACT nasal sprayIndications:N on-seasonal allergic rhinitis, unspecified trigger 2 sprays by Each Nostril route daily. 48 g 3 09/09/19 24 Active clopidogrel (PLAVIX) 75 MG tablet Take 1 tablet (75 mg total) by mouth daily. 11/08/19 24 025 Active simvastatin (ZOCOR) 40 MG tabletIndications: Mixed hyperlipidemia Take 1 tablet (40 mg total) by mouth daily. 90 tablet 3 04/17/20 24 Active metoprolol succinate ER (TOPROL-XL) 25 MG 24 hr tabletIndications: Primary hypertension TAKE 1 TABLET(25 MG) BY MOUTH DAILY 90 tablet 3 04/24/20 24 Active aspirin EC (ECOTRIN) 81 MG tablet Take 1 tablet (81 mg total) by mouth daily. Active Active Problems Problem Noted Date Diagnosed Date Prediabetes 04/26/2023 TIA (transient ischemic attack) 04/06/2023 Left carotid stenosis 04/06/2023 Hypertension BPH (benign prostatic hyperplasia) Osteoarthritis of left hip Hyperlipidemia Encounters Date Type Department Care Team Description 06/19/2024 4:20 PM MD PSYCHIATRY Office Visit [address] [phone] Eddy Pelaez II, MD Hypertension Follow Up (Patient presents to follow up for hypertension and lab results) 06/19/2024 Travel 06/19/2024 Patient Outreach [address] [phone] Eddy Pelaez II, MD Pre-visit Gap Closure 06/14/[address] [phone] Eddy Pelaez II, MD Information 04/21/[address] [phone] Eddy Pelaez II, MD Medication Request 04/17/[address] [phone] Eddy Pelaez II, MD Refill Request from Last 3 Months Immunizations Name Administration Dates Next Due Flucelvax 6 Months+ (Prefilled Syringe) 02/23/20 20 Influenza Adult (Generic) 02/23/2020 PFIZER COVID-19 (ORIGINAL FO RMULATION, PURPLE CAP) mRNA, LNP-S, PF, 30 MCG/0.3 ML DOSE 06/04/2021 Tdap (Generic) 05/03/2012 Family History Medical History Relation Comments Heart Disease Father Hypertension Father Stroke Father No Known Problems Sister 2 Cancer Sister 3 Hypertension Sister 3 Relation Status Comments Brother Father Mother Sister 1 Sister 2 Alive Sister 3 Alive Social History Tobacco Use Types Packs/Day Years Used Date Smoking Tobacco: Former Cigarettes 1 35 1 969 - 2004 Smokeless Tobacco: Never Tobacco Cessation:Counseling Given: No Alcohol Use Standard Drinks/Week Comments Yes 0 (1 standard drink = 0.6 oz pur e alcohol) social PHQ-2 Answer Date Recorded Patient Health Questionnaire-2 Score 0 06/19/2024 Education Answer Date Recorded What is the highest level of school you have completed or the highest degree you have received? 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 Not on file Not on file Not on file Last Filed Vital Signs Vital Sign Reading Time Taken Comments Blood Pressure 134/78 06/19/2024 4:33 PM MD PSYCHIATRY Pulse 78 06/19/2024 4:22 PM MD PSYCHIATRY Temperature 36.7 ??C (98.1 ??F) 06/19/2024 4:22 PM CS T Respiratory Rate 16 08/26/2023 7:20 AM CDT Oxygen Saturation 97% 06/19/2024 4:22 PM MD PSYCHIATRY Inhaled Oxygen Concentration - - Weight 98.9 kg (218 lb) 06/19/2024 4:22 PM MD PSYCHIATRY Height 180.3 cm (5' 11 ) 08/26/2023 7:20 AM CDT Body Mass Index 30.4 08/26/2023 7:20 AM CDT Plan of Treatment Upcoming Encounters Date Type Department Care Team (Late st Contact Info) Description 08/25/2024 11:40 AM CDT Office Visit [facility] [address] [place] [phone] Nazario Womack DO [address] [place] [address] 09/18/2024 4:20 PM CDT Office Visit [facility] [place] [address] [place] [phone] Eddy Pelaez II, MD [address] [place] [address] Health Maintenance Due Date Last Done Comments Pneumococcal Vaccine: 65+ Years (1 of 2 - PCV) 1962 Zoster Vaccines (1 of 2) 2006 RSV Immunization or 60+ Years (1 - Risk 60-74 years 1-dose series) 2016 Annual Medicare Wellness Visit 2021 DTaP, Tdap and Td Vaccines ( 2 - Td or Tdap) 05/03/2022 05/03/2012 COVID-19 Vaccine (4 - 2023-2 5 season) 2024 06/04/2021, 07/16/2020, 06/26/2020 Influenza Adult (#1) 2024 02/23/2020, 02/23/2020 Colorectal Cancer Screening Colonoscopy (10 Years) 01/19/2027 01/19/2017 Hepatitis C Completed 11/15/2021 AAA SCREENING Completed 10/13/2023, 09/19/2022, 09/19/2022 PHQ-2 (Physician Isabela) Completed 06/19/2024 Meningococcal B Vaccine Aged Out No l onger eligible based on patient's age to complete this topic Meningococcal Vaccine Aged Out No mana mayelin eligible based on patient's age to complete this topic RSV Immunizations Under 20 Months Aged Out No longer eligible b ased on patient's age to complete this topic Medical Devices Implanted Type Area Blood Bank Coordinator Device Identifier Shelf Expiration Date Model / Serial / Lot Urolift - [id number] Implanted:Qt y: 2 on 04/02/2022 by Rao Villeda MD at [facility] Urology N/A: Prostate TELE[employer]LEX [employer]ICAL [id number] 09/30/2023 [id number] / / [id number] Urolift - [id number] Implanted:Qt y: 2 on 04/02/2022 by R[facility]illeda MD at [facility] U[facility] N/A: Prostate TELEFLEX MEDICAL [id number] 10/22/2023 [id number] / / [id number] Urolift - [id number] Implanted:Qt y: 2 on 04/02/2022 by Rao Villeda MD at [facility] Urology N/A: Prostate TELEFLEX MEDICAL [id number] 09/24/2023 [id number] / / [id number] Procedures Procedure Name Priority Date/Time Associated Diagnosis Comments PROSTATE SPECIFIC ANTIGEN,SCREENING Routine 06/17/2024 9:41 AM MD PSYCHIATRY Prostate cancer screening LIPID PANEL Routine 06/17/2024 9:41 AM MD PSYCHIATRY Mixed hyperlipidemia COMPREHENSIVE METABOLIC PANEL Routine 06/17/2024 9:41 AM MD PSYCHIATRY Primary hypertension CBC W/DIFF AUTOMATED Routine 06/17/2024 9:41 AM MD PSYCHIATRY Primary hypertension HEMOGLOBIN, GLYCOSYLATED Routine 06/17/2024 9:41 AM MD PSYCHIATRY Prediabetes HEPATITIS C ANTIBODY W/RFX TO HCV RNA Routine 11/15/2021 9:29 AM CDT COLONOSCOPY GENERIC (SCAN ORDER) 01/19/2017 from Last 3 Months or Most Recently Relevant to Health Maintenance Results * (ABNORMAL) HEMOGLOBIN, GLYCOSYLATED (06/17/2024 9:41 AM MD PSYCHIATRY) HGB A1C 6.0(H) 4.8 - 5.6 % [facility] 1 Comment: ? Prediabetes: 5.7 - 6.4 ? Diabetes: >6.4 ? Glycemic control for adults with diabetes: <7.0 06/17/2024 9:41 AM MD PSYCHIATRY 06/17/2024 Narrative [facility] - 06/18/2024 9:07 AM MD PSYCHIATRY Performed at: ??01 - [facility] [address] ??[id number] Guide Plant: Calvin Escudero PhD, Phone: ??[phone] Eddy Pelaez II, MD LABORATORY Final R esult Performing Organization Address [facility] de Phone Number [facility] [address] [place] [address] [facility] * PROSTATE SPECIFIC ANTIGEN,SCREENING (06/17/2024 9:41 AM MD PSYCHIATRY) PSA 2.8 0.0 - 4.0 ng/mL [facility] 1 Comment: Scarlet ECLIA methodology. According to the [place] [employer], Serum PSA should decrease and remain at undetectable levels after radical prostatectomy. The AUA defines biochemical recurrence as an initial PSA value 0.2 ng/mL or greater followed by a subsequent confirmatory PSA value 0.2 ng/mL or greater. Values obtained with different assay methods or kits cannot be used interchangeably. Results cannot be interpreted as absolute evidence of the presence or absence of malignant disease. 06/17/2024 9:41 AM MD PSYCHIATRY 06/17/2024 Narrative [facility] - 06/18/2024 9:07 AM MD PSYCHIATRY Performed at: ??01 - [facility] [address] ??[id number] Guide Plant: Calvin Escudero PhD, Phone: ??[phone] Eddy Pelaez II, MD LABORATORY Final R esult Performing Organization Address [facility] de Phone Number [facility] [address] [place] [address] [facility] * (ABNORMAL) COMPREHENSIVE METABOLIC PANEL (06/17/2024 9:41 AM MD PSYCHIATRY) GLUCOSE 107(H) 70 - 99 mg/dL [facility] 1 BUN 25 8 - 27 mg/dL [facility] 1 CREATININE S/P/B 1.19 0.76 - 1.27 mg/dL [facility] 1 GFR ESTIMATE 67 >59 mL/min/1.7 3 [facility] 1 BUN CREATININE RATIO 21 10 - 24 [facility] 1 SODIUM S/P/B 143 134 - 144 mmol/L [facility] 1 POTASSIUM S/P/B 4.2 3.5 - 5.2 mmol/L [facility] 1 Comment: Specimen received hemolyzed. Value may be increased by hemolysis. Clinical correlation indicated. CHLORIDE S/P/B 102 96 - 106 mmol/L [facility] 1 CO2 23 20 - 29 mmol/L [facility] 1 CALCIUM S/P/B 9.9 8.6 - 10.2 mg/dL [facility] 1 TOTAL PROTEIN S/P/B 6.9 6.0 - 8.5 g/dL [facility] 1 ALBUMIN S/P/B 4.7 3.9 - 4.9 g/dL [facility] 1 GLOBULIN 2.2 1.5 - 4.5 g/dL [facility] 1 BILIRUBIN TOTAL S/P/B 0.4 0.0 - 1.2 mg/dL [facility] 1 ALKALINE PHOSPHATASE S/P/B 81 44 - 121 IU/L [facility] 1 AST 38 0 - 40 IU/L [facility] 1 ALT 30 0 - 44 IU/L [facility] 1 06/17/2024 9:41 AM MD PSYCHIATRY 06/17/2024 Narrative [facility] - 06/18/2024 9:07 AM MD PSYCHIATRY Performed at: ??01 - [facility] [address] ??[id number] Guide Plant: Calvin Escudero PhD, Phone: ??[phone] Eddy Pelaez II, MD LABORATORY Final R esult [facility] [address] [place] [address] [facility] * (ABNORMAL) LIPID PANEL (06/17/2024 9:41 AM MD PSYCHIATRY) CHOLESTEROL 146 100 - 199 mg/dL [facility] 1 TRIGLYCERIDES 198(H) 0 - 149 mg/dL [facility] 1 HDL 47 >39 mg/dL [facility] 1 VLDL CALCULATION 33 5 - 40 mg/dL [facility] 1 LDL (CALCULATED) 66 0 - 99 mg/dL [facility] 1 06/17/2024 9:41 AM MD PSYCHIATRY 06/17/2024 Narrative [facility] - 06/18/2024 9:07 AM MD PSYCHIATRY Performed at: ??01 - [facility] [address] ??[id number] Guide Plant: Calvin Escudero PhD, Phone: ??[phone] Eddy Pelaez II, MD LABORATORY Final R esult [facility] [address] [place] [address] [facility] * CBC W/DIFF AUTOMATED (06/17/2024 9:41 AM MD PSYCHIATRY) Pathologist [facility] WBC 7.6 3.4 - 10.8 x10E3/uL [facility] 1 RBC 5.03 4.14 - 5.80 x10E6/uL [facility] 1 HGB 15.6 13.0 - 17.7 g/dL [facility] 1 HCT 47.6 37.5 - 51.0 % [facility] 1 MCV 95 79 - 97 fL [facility] 1 MCH 31.0 26.6 - 33.0 pg [facility] 1 MCHC 32.8 31.5 - 35.7 g/dL [facility] 1 RDW 12.9 11.6 - 15.4 % [facility] 1 PLATELET COUNT 218 150 - 450 x10E3/uL [facility] 1 NEUTROPHILS % 63 Not Estab. % [facility] 1 LYMPHOCYTES % 23 Not Estab. % [facility] 1 MONOCYTES % 9 Not Estab. % [facility] 1 EOSINOPHILS % 3 Not Estab. % [facility] 1 BASOPHILS % 1 Not Estab. % [facility] 1 ABS. NEUTROPHILS 4.9 1.4 - 7.0 x10E3/uL [facility] 1 ABS. LYMPHOCYTES 1.7 0.7 - 3.1 x10E3/uL [facility] 1 MONOCYTES 0.7 0.1 - 0.9 x10E3/uL [facility] 1 ABS. EOSINOPHILS 0.2 0.0 - 0.4 x10E3/uL [facility] 1 ABS. BASOPHILS 0.1 0.0 - 0.2 x10E3/uL [facility] 1 ABS. IMMATURE GRANULOCYTES 1 Not Estab. % [facility] 1 ABS. IMMATURE GRANULOCYTES 0.1 0.0 - 0.1 x10E3/uL [facility] 1 06/17/2024 9:41 AM MD PSYCHIATRY 06/17/2024 Narrative [facility] - 06/18/2024 9:07 AM MD PSYCHIATRY Performed at: ??01 - [facility] [address], [place], [place] ??[id number] Guide Plant: Calvin Escudero PhD, Phone: ??[phone] Eddy Pelaez II, MD LABORATORY Final R esult Performing Organization Address [facility] Co de Phone Number [facility] [address] [place] [address] [facility] * HEPATITIS C ANTIBODY W/RFX TO HCV RNA (11/15/2021 9:29 AM CDT) HEPATITIS C AB NON-REACTI VE NON-REACT ALLIE [facility] SIGNAL TO CUTOFF 0.01 <[address] [facility] Comment: HCV antibody was non-reactive. There is no laboratory evidence of HCV infection. In most cases, no further action is required. However, if recent HCV exposure is suspected, a test for HCV RNA (test code 25063) is suggested. For additional information please refer to http://education.[employer]/faq/VYC18y6 (This link is being provided for informational/ educational purposes only.) 11/15/2021 9:29 AM CDT 11/15/2021 9:32 AM CDT Narrative [facility] - 11/17/2021 2:26 PM CDT FASTING:YES FASTING: YES Eddy Pelaez II, MD LABORATORY Final R esult Performing Organization Address [facility]/ZIP Co de Phone Number [facility] [address] [address] [phone] * COLONOSCOPY GENERIC (01/19/2017) 01/19/2017 Narrative 01/19/2017 Ordered by an unspecified provider. us Documents Scanned SCANNING Final Result from Last 3 Months or Most Recently Relevant to Health Maintenance Insurance [employer] [facility] Care Teams Heel Breaster Relationship Specialty Start Date End Date Eddy Pelaez II, MD [address] [place] [id number] PCP - General FAMILY PRACTICE 06/02/21
--- OUTSIDE RECORDS SUMMARY | 2024-06-21 03:13 | XMS_ITS | Referral Summary ---
Author Organization [facility] Address [address] [place] [address] Care Team Providers Care Car Cleaner Name Role Phone Unavailable Primary Care Provider Unavailabl e Source Comments [facility],non-owned Affiliates and Associated Physician Practices is amultiple site organization consisting of ambulatory clinics and hospital sitesin [place], [place]. This disclosure is being madepursuant to the Care Everywhere program and may not contain all information available regarding this patient. Last updated 18.[facility] Immunizations Name Administration Dates Next Due Covid Pfizer primary monoval ent 12+ yr 0.3mL Purple cap 07/16/2020,06/26/2020 Social History Tobacco Use Types Packs/Day Years Used Date Smoking Tobacco: Never Assessed Sex and Gender Information Value Date Recorded Sex Assigned at Not on file Gender Identity Not on file Sexual Orientation Not on file Plan of Treatment Not on file
--- OUTSIDE RECORDS SUMMARY | 2024-06-21 14:36 | XMS_ITS | Patient Health Summary ---
Author Organization [facility] Address [address] [address] Care Team Providers Care Tar Kettle Runner Name Role Phone Unavailable Primary Care Provider Unavailabl e Note from [facility],non-owned Affiliates and Associated Physician Practices is amultiple site organization consisting of ambulatory clinics and hospital sitesin [place], [place], [place] and [place]. This disclosure is being madepursuant to the Care Everywhere program and may not contain all information available regarding this patient. Last updated 18.[facility] Immunizations * Covid Pfizer primary monovalent 12+ yr 0.3mL Purple cap(Given 07/16/2020, 06/26/2020) Social History Tobacco Use Types Packs/Day Years Used Date Smoking Tobacco: Never Assessed Sex and Gender Information Value Date Recorded Sex Assigned at Not on file Gender Identity Not on file Sexual Orientation Not on file
--- OUTSIDE RECORDS SUMMARY | 2024-06-21 14:36 | XMS_ITS | Clinical Summary ---
Author Organization [facility] Address [address] [place] [address] Care Team Providers Care Electrical Equipment Tester Name Role Phone Unavailable Primary Care Provider Unavailabl e Source Comments [facility] [employer],non-owned Affiliates and Associated Physician Practices is amultiple site organization consisting of ambulatory clinics and hospital sitesin [place], [place], [place] and [place]. This disclosure is being madepursuant to the Care Everywhere program and may not contain all information available regarding this patient. Last updated 18.[facility] Immunizations Name Administration Dates Next Due Covid [...]
--- OUTSIDE RECORDS SUMMARY | 2024-06-21 14:36 | XMS_ITS | Clinical Summary ---
Author Organization [facility] Address [address] [place] [address]. [place] [address] [place] [address] Care Team Providers Care Purchasing Agent Name Role Phone Benigno GONSALEZ MD, Eddy [...] Department Care Team Description 06/19/2024 4:20 PM WET PAN OPERATOR Office Visit [address] [phone] Eddy Pelaez II, MD Hypertension Follow Up (Patient presents to follow up for hypertension and lab results) 06/19/2024 Travel 06/19/2024 Patient Outreach [address] [phone] 02 Eddy Pelaez II, MD Pre-visit Gap Closure 06/14/[address] [phone] Eddy Pelaez II, MD Information 04/21/[address] [phone] Eddy Pelaez II, MD Medication Request 04/17/[address] [phone] Eddy Pelaez II, MD Refill Request from [...] Comments Blood Pressure 134/78 06/19/2024 4:33 PM WET PAN OPERATOR Pulse 78 06/19/2024 4:22 PM WET PAN OPERATOR Temperature 36.7 ??C (98.1 ??F) 06/19/2024 4:22 PM CS T Respiratory Rate 16 08/26/2023 7:20 AM CDT Oxygen Saturation 97% 06/19/2024 4:22 PM WET PAN OPERATOR Inhaled Oxygen Concentration - - Weight 98.9 kg (218 lb) 06/19/2024 4:22 PM WET PAN OPERATOR Height 180.3 cm (5' 11 ) 08/26/2023 7:20 AM CDT Body Mass Index 30.4 08/26/2023 7:20 AM CDT Plan of Treatment Upcoming Encounters Date Type Department Care Team (Late st Contact Info) Description 08/25/2024 11:40 AM CDT Office Visit [facility] [address] [place] [phone] Nazario Womack DO [address] [facility] [place] [address] 09/18/2024 4:20 PM CDT Office Visit [facility] Family [facility] - [place] [address] [place] [phone] Eddy Pelaez II, MD [address] [place] [address] Health Maintenance Due Date Last Done Comments [...] SCREENING Completed 10/13/2023, 09/19/2022, 09/19/2022 PHQ-2 (Physician Briggs) Completed 06/19/2024 Meningococcal B Vaccine Aged Out No l onger eligible based on patient's age to complete this topic Meningococcal Vaccine Aged Out No mana mayelin eligible based on patient's age to complete this topic RSV Immunizations Under 20 Months Aged Out No longer eligible b ased on patient's age to complete this topic Medical Devices Implanted Type Area Website Developer Device Identifier Shelf Expiration Date Model / Serial / Lot Urolift - [id number] Implanted:Qt y: 2 on 04/02/2022 by Rao Villeda MD at [facility] Urology N/A: Prostate TELEFLEX MEDICAL [id number] 09/30/2023 [id number] / / [id number] Urolift - [id number] Implanted:Qt y: 2 on 04/02/2022 by Rao Villeda MD at [facility] U[facility] N/A: Prostate TELEFLEX MEDICAL [id number] 10/22/2023 [id number] / / [id number] Urolift - [id number] Implanted:Qt y: 2 on 04/02/2022 by Rao Villeda MD at [facility] Urology N/A: Prostate TELEFLEX MEDICAL [id number] 09/24/2023 [id number] / / [id number] Procedures Procedure Name Priority Date/Time Associated Diagnosis Comments PROSTATE SPECIFIC ANTIGEN,SCREENING Routine 06/17/2024 9:41 AM WET PAN OPERATOR Prostate cancer screening LIPID PANEL Routine 06/17/2024 9:41 AM WET PAN OPERATOR Mixed hyperlipidemia COMPREHENSIVE METABOLIC PANEL Routine 06/17/2024 9:41 AM WET PAN OPERATOR Primary hypertension CBC W/DIFF AUTOMATED Routine 06/17/2024 9:41 AM WET PAN OPERATOR Primary hypertension HEMOGLOBIN, GLYCOSYLATED Routine 06/17/2024 9:41 AM WET PAN OPERATOR Prediabetes HEPATITIS C ANTIBODY W/RFX TO HCV RNA Routine 11/15/2021 9:29 AM CDT COLONOSCOPY GENERIC (SCAN ORDER) 01/19/2017 from Last 3 Months or Most Recently Relevant to Health Maintenance Results * (ABNORMAL) HEMOGLOBIN, GLYCOSYLATED (06/17/2024 9:41 AM WET PAN OPERATOR) HGB A1C 6.0(H) 4.8 - 5.6 % [facility] 1 Comment: ? Prediabetes: 5.7 - 6.4 ? Diabetes: >6.4 ? Glycemic control for adults with diabetes: <7.0 06/17/2024 9:41 AM WET PAN OPERATOR 06/17/2024 Narrative [facility] - 06/18/2024 9:07 AM WET PAN OPERATOR Performed at: ??01 - [facility] [address] ??[id number] Commissioning Engineer: Calvin Escudero PhD, Phone: ??[phone] Eddy Pelaez II, MD LABORATORY Final R esult Performing Organization Address [facility] de Phone Number [facility] [address] [place] [address] [facility] 1 * PROSTATE SPECIFIC ANTIGEN,SCREENING (06/17/2024 9:41 AM WET PAN OPERATOR) PSA 2.8 0.0 - 4.0 ng/mL [facility] 1 Comment: Scarlet ECLIA methodology. According to the [employer], Serum PSA should decrease and [...] absence of malignant disease. 06/17/2024 9:41 AM WET PAN OPERATOR 06/17/2024 Narrative [facility] - 06/18/2024 9:07 AM WET PAN OPERATOR Performed at: ??01 - [facility] [address] ??[id number] Commissioning Engineer: Calvin Escudero PhD, Phone: ??[phone] Eddy Pelaez II, MD LABORATORY Final R esult Performing Organization Address [facility] de Phone Number [facility] [address] [place] [address] [facility] 1 * (ABNORMAL) COMPREHENSIVE METABOLIC PANEL (06/17/2024 9:41 AM WET PAN OPERATOR) GLUCOSE 107(H) 70 - 99 mg/dL [facility] [...] 44 IU/L [facility] 1 06/17/2024 9:41 AM WET PAN OPERATOR 06/17/2024 Narrative [facility] - 06/18/2024 9:07 AM WET PAN OPERATOR Performed at: ??01 - [facility] [address] ??[id number] Commissioning Engineer: Calvin Escudero PhD, Phone: ??[phone] Eddy Pelaez II, MD LABORATORY Final R esult [facility] [address] [place] [address] [facility] 1 * (ABNORMAL) LIPID PANEL (06/17/2024 9:41 AM WET PAN OPERATOR) CHOLESTEROL 146 100 - 199 mg/dL [facility] 1 TRIGLYCERIDES 198(H) 0 - 149 mg/dL [facility] 1 HDL 47 >39 mg/dL [facility] 1 VLDL CALCULATION 33 5 - 40 mg/dL [facility] 1 LDL (CALCULATED) 66 0 - 99 mg/dL [facility] 1 06/17/2024 9:41 AM WET PAN OPERATOR 06/17/2024 Narrative [facility] - 06/18/2024 9:07 AM WET PAN OPERATOR Performed at: ??01 - [facility] [address] ??[id number] Commissioning Engineer: Calvin Escudero PhD, Phone: ??[phone] Eddy Pelaez II, MD LABORATORY Final R esult [facility] [address] [place] [address] [facility] 1 * CBC W/DIFF AUTOMATED (06/17/2024 9:41 AM WET PAN OPERATOR) Pathologist [facility] WBC 7.6 3.4 - 10.8 x10E3/uL [facility] [...] 0.1 x10E3/uL [facility] 1 06/17/2024 9:41 AM WET PAN OPERATOR 06/17/2024 Narrative [facility] - 06/18/2024 9:07 AM WET PAN OPERATOR Performed at: ??01 - [facility] [address], [place], [place] ??[id number] Commissioning Engineer: Calvin Escudero PhD, Phone: ??[phone] Eddy Pelaez II, MD LABORATORY Final R esult Performing Organization Address [facility] Co de Phone Number [facility] [address] [place] [address] [facility] 1 * HEPATITIS C ANTIBODY W/RFX [...] a test for HCV RNA (test code 17304) is suggested. For additional information please refer to http://education.Patient Engagement Systems/faq/ADB34t8 (This link is being provided for informational/ educational purposes only.) 11/15/2021 9:29 AM CDT 11/15/2021 9:32 AM CDT Narrative [facility] - 11/17/2021 2:26 PM CDT FASTING:YES FASTING: YES Eddy Pelaez II, MD LABORATORY Final R esult Performing Organization Address [facility]/ZIP Co de Phone Number [facility] [address] [address] [place] [phone] * COLONOSCOPY GENERIC (01/19/2017) 01/19/2017 Narrative 01/19/2017 Ordered by an unspecified provider. us Documents Scanned SCANNING Final Result from Last 3 Months or Most Recently Relevant to Health Maintenance Insurance AETNA [facility] MEDICARE Care Teams Purchasing Agent Relationship Specialty Start Date End Date Eddy Pelaez II, MD [address] [place] [address] PCP - General FAMILY PRACTICE 06/02/21
--- OUTSIDE RECORDS SUMMARY | 2024-06-21 14:36 | XMS_ITS | Referral Summary ---
Author Organization [facility] Address [address] [place] [address] Care Team Providers Care Diamond Sander Name Role Phone Unavailable Primary Care Provider Unavailabl e Source Comments [facility],non-owned Affiliates and Associated Physician Practices is amultiple site organization consisting of ambulatory clinics and hospital sitesin [place], [place] and [place]. This disclosure is being madepursuant to the Care Everywhere program and may not contain all information available regarding this patient. Last updated 18.[facility] Immunizations Name Administration Dates Next Due Covid [...]
--- OUTSIDE RECORDS SUMMARY | 2024-06-21 14:36 | XMS_ITS | Clinical Summary ---
Author Organization [facility] Address [address] [place] [address] Care Team Providers Care Ticket Sales Supervisor Name Role Phone Benigno GONSALEZ MD, Eddy [...] 05/13/2023 Assessment & Plan (06/09/2024 11:02 AM INTERFACE ENGINEER): Remains asymptomatic. Moderate left ICA stenosis. Continue aspirin statin therapy and continue risk factor modifications. Follow-up in 1 year for routine surveillance with carotid duplex. Assessment & Plan (06/16/2023 11:08 AM INTERFACE ENGINEER): Stable. After long discussion with the patient about his history I do not feel that this was a symptomatic carotid stenosis that led to his hospitalization. This is supported by the timeline and prior occurrence. Recommend ongoing medical therapy follow up 6 months with carotid duplex. Assessment & Plan (05/14/2023 10:45 AM INTERFACE ENGINEER): CTA of the head and neck per [...] 04/03/2023 Assessment & Plan (06/16/2023 11:07 AM INTERFACE ENGINEER): Hyperlipidemia chronic and controlled. Continue Zocor. Hypertension 04/03/2023 Assessment & Plan (06/16/2023 11:07 AM INTERFACE ENGINEER): Hypertension chronic and controlled. Continue current medical [...] Department Care Team Description 06/15/2024 3:15 PM INTERFACE ENGINEER Office Visit [facility] Cardiology [address] [place] [phone] Davin Kaur MD Dyspnea, unspecified type (Primary Dx) 06/08/2024 2:15 PM INTERFACE ENGINEER Office Visit [facility] Vascular and Vein Surgery [address] [place] [address] Melvi Engel NP Bilateral carotid artery stenosis (Primary Dx); Secondary hypertension; Mixed hyperlipidemia 06/08/2024 1:30 PM INTERFACE ENGINEER - 06/08/2024 11:59 PM INTERFACE ENGINEER Hospital Encounter [facility] Medical Office Building 2 Vascular [address] [place] [address] Bilateral carotid artery stenosis Discharge Disposition: Discharge to home or self care 06/06/2024 3:30 PM INTERFACE ENGINEER Office Visit [facility] Neurology [address] [place] [phone] Anoop Villeda Si, MD Multiple lacunar infarcts (HCC) (Primary Dx); Bilateral carotid artery stenosis 05/02/2024 Telephone [facility] Cardiology [address] [place] [address] Davin Kaur MD Cardiac clearance [...] Tobacco: Never Tobacco Cessation:Counseling Given: Not Answered [facility] Utilities Answer Date Recorded In the [...] often do you attend chur ch or shinto services? Never 2023 Do you belong to any clubs o r organizations such as pentecostalism groups, unions, fraternal or athletic groups, or [...] place to sleep or slept in a senior living (including now)? No 2023 Personal Safety Answer Date Recorded Have you ever been in or are you currently in a harmful physical or emotional relationship or is someone making you feel afraid or unsafe? 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 file Not on file Not on file Obstetrics History Last Filed Vital Signs Vital Sign Reading Time Taken Comments Blood Pressure 138/87 06/15/2024 3:18 PM INTERFACE ENGINEER Pulse 77 06/15/2024 3:18 PM INTERFACE ENGINEER Temperature 36.2 ??C (97.2 ??F) 11/08/2023 9:17 AM CD T Respiratory Rate 18 2023 11:2 4 AM INTERFACE ENGINEER Oxygen Saturation 95% 06/15/2024 3:18 PM INTERFACE ENGINEER Inhaled Oxygen Concentration - - Weight 100.4 kg (221 lb 6.4 oz) 06/15/2024 3:18 PM INTERFACE ENGINEER Height 177.8 cm (5' 10 ) 06/15/2024 3:18 PM INTERFACE ENGINEER Body Mass Index 31.77 06/15/2024 3:18 PM INTERFACE ENGINEER Plan of Treatment Health Maintenance Due Date [...] Completed 09/19/2022 Medical Devices Implanted Type Area Milk Pickup Truck Driver Device Identifier Shelf Expiration Date Model / Serial / Lot Medtronic Card Vasc Surgery 2.50 X 22mm [employer] Rx Coronary Stent [id number] - S0 - [id number] Implanted:Qty: 1 on 11/08/2023 by Davin Kaur MD at [facility] Stent Medtronic Card Vasc Surgery 10/29/2025 [id number] / 0 / [id number] Procedures Procedure Name Priority Date/Time Associated Diagnosis Comments US CAROTIDS DUPLEX BILATERAL Schedule Routine, Read Routine (OP Routine) 06/08/2024 2:14 PM INTERFACE ENGINEER Bilateral carotid artery stenosis CT ABDOMEN PELVIS W CONTRAST ED 09/19/2022 2:38 PM CDT from Last 3 Months or Most Recently Relevant to Health Maintenance Results * US Carotids Duplex Bilateral (06/08/2024 2:14 PM INTERFACE ENGINEER) Anatomical Region Laterality Modality Vascular Bilateral Ultrasound 06/08/2024 Narrative 06/10/2024 1:09 PM INTERFACE ENGINEER [employer] Job ID: [id number] Amphion Document ID: [id number] Dictated date/time: [id number] CAROTID DUPLEX REASON FOR EXAM Carotid stenosis. [...] bilateral vertebral arteries. Job ID/Internal Job ID: ??[id number] us Pauline BAIN IMArmand US PROCEDURES Final [...] PM T: ??09/19/2022 3:47 PM Report ID: [id number] Reading Location: ??[id number] Procedure Note Helio Lyons MD PhD - [...] Helio Lyons M.D. WW: JERICHO Report ID: [id number] Reading Location: [id number] Tad BAIN IMG CT PROCEDURES Final Re sult from Last 3 Months or Most Recently Relevant to Health Maintenance Insurance [facility] Applifier MEDICARE [facility] Advance Directives For more information, please contact: [phone] * Full Code (Latest Code Status on File) Date Activated Date Inactivated Comments 11/08/2023 11:47 AM 11/08/2023 6:44 PM * Full Code Date Activated Date Inactivated Comments 10/19/2023 4:24 PM 10/19/2023 10:58 PM * Full Code Date Activated Date Inactivated Comments 04/04/2023 3:43 AM 2023 6:02 PM Care Teams Ticket Sales Supervisor Relationship Specialty Start Date End Date Eddy Pelaez II, MD PCP - General Family Practice 02/18/22
--- OUTSIDE RECORDS SUMMARY | 2024-06-21 14:36 | XMS_ITS | Referral Summary ---
Author Organization [facility] Address [address] [place] [address] Care Team Providers Care Supervisor Pile Driving Name Role Phone Benigno GONSALEZ MD, Eddy Wood Primary Care Provid er Encounters Date Type Department Care Team Description 06/15/2024 3:15 PM FIELD COORDINATOR Office Visit [facility] Cardiology [address] [place] [address] [place] [phone] Davin Kaur MD Dyspnea, unspecified type (Primary Dx) 06/08/2024 2:15 PM FIELD COORDINATOR Office Visit [facility] Vascular and Vein Surgery [address] [place] [address] Melvi Engel NP Bilateral carotid artery stenosis (Primary Dx); Secondary hypertension; Mixed hyperlipidemia 06/08/2024 1:30 PM FIELD COORDINATOR - 06/08/2024 11:59 PM FIELD COORDINATOR Hospital Encounter [facility] Medical Office Building 2 Vascular [address] [place] [address] Bilateral carotid artery stenosis Discharge Disposition: Discharge to home or self care 06/06/2024 3:30 PM FIELD COORDINATOR Office Visit [facility] Neurology [address] [place] [address] Anoop Villeda Si, MD Multiple lacunar infarcts (HCC) (Primary Dx); Bilateral carotid artery stenosis 05/02/2024 Telephone [facility] Cardiology [address] [place] [address] [place] [phone] Davin Kaur MD Cardiac clearance request for [...] 05/13/2023 Assessment & Plan (06/09/2024 11:02 AM FIELD COORDINATOR): Remains asymptomatic. Moderate left ICA stenosis. Continue aspirin statin therapy and continue risk factor modifications. Follow-up in 1 year for routine surveillance with carotid duplex. Assessment & Plan (06/16/2023 11:08 AM FIELD COORDINATOR): Stable. After long discussion with the patient about his history I do not feel that this was a symptomatic carotid stenosis that led to his hospitalization. This is supported by the timeline and prior occurrence. Recommend ongoing medical therapy follow up 6 months with carotid duplex. Assessment & Plan (05/14/2023 10:45 AM FIELD COORDINATOR): CTA of the head and neck per [...] 04/03/2023 Assessment & Plan (06/16/2023 11:07 AM FIELD COORDINATOR): Hyperlipidemia chronic and controlled. Continue Zocor. Hypertension 04/03/2023 Assessment & Plan (06/16/2023 11:07 AM FIELD COORDINATOR): Hypertension chronic and controlled. Continue current medical [...] Tobacco: Never Tobacco Cessation:Counseling Given: Not Answered [facility] Links[employer] Answer Date Recorded In the past 12 months has [employer], gas, oil, or water [employer] threatened to shut off services in your [...] often do you attend chur ch or taoism services? Never 2023 Do you belong to any clubs o r organizations such as jewish groups, unions, fraternal or athletic groups, or [...] place to sleep or slept in a assisted (including now)? No 2023 Personal Safety Answer Date Recorded Have you ever been in or are you currently in a harmful physical or emotional relationship or is someone making you feel afraid or unsafe? 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 Not on file Not on file Last Filed Vital Signs Vital Sign Reading Time Taken Comments Blood Pressure 138/87 06/15/2024 3:18 PM FIELD COORDINATOR Pulse 77 06/15/2024 3:18 PM FIELD COORDINATOR Temperature 36.2 ??C (97.2 ??F) 11/08/2023 9:17 AM CD T Respiratory Rate 18 2023 11:2 4 AM FIELD COORDINATOR Oxygen Saturation 95% 06/15/2024 3:18 PM FIELD COORDINATOR Inhaled Oxygen Concentration - - Weight 100.4 kg (221 lb 6.4 oz) 06/15/2024 3:18 PM FIELD COORDINATOR Height 177.8 cm (5' 10 ) 06/15/2024 3:18 PM FIELD COORDINATOR Body Mass Index 31.77 06/15/2024 3:18 PM FIELD COORDINATOR Plan of Treatment Not on file Medical Devices Implanted Type Area Wallpaper Inspector Device Identifier Shelf Expiration Date Model / Serial / Lot Medtronic Card Vasc Surgery 2.50 X 22mm [employer] [place] Rx Coronary Stent [id number] - S0 - [id number] Implanted:Qty: 1 on 11/08/2023 by Davin Kaur MD at [facility] Stent Medtronic Card Vasc Surgery 10/29/2025 [id number] / [id number] / [id number] Procedures Procedure Name Priority Date/Time Associated Diagnosis Comments US CAROTIDS DUPLEX BILATERAL Schedule Routine, Read Routine (OP Routine) 06/08/2024 2:14 PM FIELD COORDINATOR Bilateral carotid artery stenosis CT ABDOMEN PELVIS W CONTRAST ED 09/19/2022 2:38 PM CDT from Last 3 Months or Most Recently Relevant to Health Maintenance Results * US Carotids Duplex Bilateral (06/08/2024 2:14 PM FIELD COORDINATOR) Anatomical Region Laterality Modality Vascular Bilateral Ultrasound 06/08/2024 Narrative 06/10/2024 1:09 PM FIELD COORDINATOR Del[employer] Job ID: [id number] Delphi Document ID: [id number] Dictated date/time: [id number] CAROTID DUPLEX REASON FOR EXAM Carotid stenosis. [...] bilateral vertebral arteries. Job ID/Internal Job ID: ??[id number] us Pauline BAIN IMG US PROCEDURES Final [...] PM T: ??09/19/2022 3:47 PM Report ID: [id number] Reading Location: ??[id number] Procedure Note Helio Lyons MD PhD - [...] Helio Lyons M.D. WW: JERICHO Report ID: [id number] Reading Location: [place] [address] PROCEDURES Final Re sult from Last 3 Months or Most Recently Relevant to Health Maintenance Insurance MEDICARE [facility] STATE LINE PPO FOR LIFE MEDICARE FOR LIFE [employer] Advance Directives For more information, please contact: [phone] * Full Code (Latest Code Status on File) Date Activated Date Inactivated Comments 11/08/2023 11:47 AM 11/08/2023 6:44 PM * Full Code Date Activated Date Inactivated Comments 10/19/2023 4:24 PM 10/19/2023 10:58 PM * Full Code Date Activated Date Inactivated Comments 04/04/2023 3:43 AM 2023 6:02 PM Care Teams Supervisor Pile Driving Relationship Specialty Start Date End Date Eddy Pelaez II, MD PCP - General Family Practice 02/18/22
[2024-06-21 15:12] LABS: Add Urine Microscopic? NO; Appearance Urine Clear (Clear); Bilirubin Urine Negative (Negative); Blood Urine Negative (Negative); Color Urine Yellow (Yellow); Glucose Urine UA Negative (Negative); Ketones Urine Negative (Negative); Leukocyte Esterase Ur Negative LEU/UL (Negative); Nitrate Urine Negative (Negative); Protein Urine Negative (Negative); Specific Grav Ur 1.022 (1.001-1.035)
[2024-06-21 15:18] LABS: Urine Cotinine NEGATIVE
[2024-06-21 15:31] LABS: INR 0.9; Prothrombin Time 12.1 Seconds (11.1-14.7)
[2024-06-21 15:32] LABS: Partial Thromboplastin Time 27.4 Seconds (22.3-36.8)
[2024-06-21 16:26] LABS: MRSA (PCR) NOT DETECTED (NOT DETECTE)
== END 2024-06-21 13:46 | disposition home or self-care (01) ==
LOC: ANHSURGERY 13:50
PROVIDERS: Visit Provider Orthopaedic Surgery
DX: Z01.818 Encounter for other preprocedural examination (principal); M16.12 Unilateral primary osteoarthritis, left hip
CPT/HCPCS: 80307; 81003; 85610; 85730; 87641

== ENCOUNTER 2024-07-06 16:22 | Inpatient (IN) | payer MEDICARE, OTHER, SELFPAY ==
[2024-06-21 14:11] VITALS: RESP 16; TEMP 36.6; O2SAT 95; BMI 29.7
--- NOTE | 2024-06-21 14:30 | PC.NURSE ---
Report to the Outpatient Waiting Room, entrance under the green pavilion located off [facility], at time _0600am on date __07/05/24 . Planned Procedure Time: __0730am .? Time changes happen often and if your time is changed the preop area will call you the afternoon before. - You and your visitor will be asked to self-screen and do not enter if you have any COVID symptoms. Please call surgeon if you need to reschedule. - A mask is optional within the hospital at this time. Patients may have clear liquids (water, carbonated beverages, clear teas, apple juice) until 3 hours prior to surgery with a maximum of 20 ounces. - No food from midnight until time of surgery and no smoking. This includes no chewing gum, candy or mints. (0430) Take only the following medications with a SIP of water on the morning of surgery: Amlodipine and Metoprolol DO NOT STOP ANY OF YOUR OTHER PRESCRIPTION MEDICATIONS PRIOR TO SURGERY EXCEPT THE FOLLOWING Medications to discontinue per physician ____Plavix- Hold [address] Martin/Dick Date to take last dose 06/27/24 - Continue Aspirin. Hold all vitamins and supplements for 3 days per anesthesiologist date of last dose 07/01/24. Please no make-up, nail burundian, hairspray, perfume, deodorant, or body powder the day of surgery.? No jewelry (including any body piercings) or valuables the day of surgery, leave them at home.? Please take a shower or bath the night before, or the morning of, surgery with an antibacterial soap.? Wear comfortable, loose fitting clothing.?Hibicleanse- scrub per Mario. - Jewelry must be removed prior to entering the operating room.? Rings and piercings that are not removed may be cut off. - The hospital will not accept responsibility for valuables.? - Please leave all valuables, including medications, at home the day of surgery. If you are going home after surgery, a licensed explosives truck driver must drive you home.? - NO public transportation without another adult if you receive anesthesia. - We recommend that an adult stay with you for 24 hours following discharge. - We also recommend that you do not drive, make important decision, drink alcoholic beverages, or take any drugs that were not prescribed by your health care provider for at least 24 hours after your discharge time. Hold all vitamins and supplements for 3 days per anesthesiologist. Follow any additional instructions given to you from your surgeon. Telephone instructions given to ___Patient and asked if any additional questions and then verbalized understanding. Patient advised to call surgeon office or pre surgery nurse liaison [phone] if any additional questions.
[2024-07-05] VITALS (19 sets, daily range): BP systolic 115–154; BP diastolic 61–90; PULSE 63–85; RESP 10–18; TEMP 36.4–36.8; O2SAT 94–99
--- OUTSIDE RECORDS SUMMARY | 2024-07-05 00:57 | XMS_ITS | Patient Health Summary ---
Author Organization [facility] Address [address] [place] [address] Care Team Providers Care Marble Rubber Name Role Phone Unavailable Primary Care Provider Unavailabl e Note from [facility],non-owned Affiliates and Associated Physician Practices is amultiple site organization consisting of ambulatory clinics and hospital sitesin [place], [place], [place] and [place]. This disclosure is being madepursuant to the Care Everywhere program and may not contain all information available regarding this patient. Last updated 18.[facility] Immunizations * Covid Pfizer primary monovalent 12+ yr 0.3mL Purple cap(Given 07/16/2020, 06/26/2020) Social History Tobacco Use Types Packs/Day Years Used Date Smoking Tobacco: Never Assessed Sex and Gender Information Value Date Recorded Sex Assigned at Not on file Gender Identity Not on file Sexual Orientation Not on file
--- OUTSIDE RECORDS SUMMARY | 2024-07-05 00:57 | XMS_ITS | Referral Summary ---
Author Organization [facility] Address [address] [place] [address] Care Team Providers Care Desk Clerk Name Role Phone Benigno GONSALEZ MD, Eddy Wood Primary Care Provid er Encounters Date Type Department Care Team Description 06/15/2024 3:15 PM MACHINE CERAMIC COATER Office Visit [facility] Cardiology [address] [place] [address] [place] [phone] Davin Kaur MD Dyspnea, unspecified type (Primary Dx) 06/08/2024 2:15 PM MACHINE CERAMIC COATER Office Visit [facility] Vascular and Vein Surgery [address] [place] [address] Melvi Engel NP Bilateral carotid artery stenosis (Primary Dx); Secondary hypertension; Mixed hyperlipidemia 06/08/2024 1:30 PM MACHINE CERAMIC COATER - 06/08/2024 11:59 PM MACHINE CERAMIC COATER Hospital Encounter [facility] Medical Office Building 2 Vascular [address] [place] [address] Bilateral carotid artery stenosis Discharge Disposition: Discharge to home or self care 06/06/2024 3:30 PM MACHINE CERAMIC COATER Office Visit [facility] Neurology [address] [place] [address] Anoop Villeda Si, MD Multiple lacunar infarcts (HCC) (Primary Dx); Bilateral carotid artery stenosis 05/02/2024 Telephone [facility] Cardiology [address] [place] [address] [place] [phone] aDvin Kaur MD Cardiac clearance request for left [...] 05/13/2023 Assessment & Plan (06/09/2024 11:02 AM MACHINE CERAMIC COATER): Remains asymptomatic. Moderate left ICA stenosis. Continue aspirin statin therapy and continue risk factor modifications. Follow-up in 1 year for routine surveillance with carotid duplex. Assessment & Plan (06/16/2023 11:08 AM MACHINE CERAMIC COATER): Stable. After long discussion with the patient about his history I do not feel that this was a symptomatic carotid stenosis that led to his hospitalization. This is supported by the timeline and prior occurrence. Recommend ongoing medical therapy follow up 6 months with carotid duplex. Assessment & Plan (05/14/2023 10:45 AM MACHINE CERAMIC COATER): CTA of the head and neck per [...] 04/03/2023 Assessment & Plan (06/16/2023 11:07 AM MACHINE CERAMIC COATER): Hyperlipidemia chronic and controlled. Continue Zocor. Hypertension 04/03/2023 Assessment & Plan (06/16/2023 11:07 AM MACHINE CERAMIC COATER): Hypertension chronic and controlled. Continue current medical [...] Tobacco: Never Tobacco Cessation:Counseling Given: Not Answered [facility] [employer] Answer Date Recorded In the past 12 months has [employer], gas, oil, or water [employer] threatened to shut off services in your [...] often do you attend chur ch or evangelical services? Never 2023 Do you belong to any clubs o r organizations such as quaker groups, unions, fraternal or athletic groups, or [...] place to sleep or slept in a fdc (including now)? No 2023 Personal Safety Answer Date Recorded Have you ever been in or are you currently in a harmful physical or emotional relationship or is someone making you feel afraid or unsafe? 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 Not on file Not on file Not on file Last Filed Vital Signs Vital Sign Reading Time Taken Comments Blood Pressure 138/87 06/15/2024 3:18 PM MACHINE CERAMIC COATER Pulse 77 06/15/2024 3:18 PM MACHINE CERAMIC COATER Temperature 36.2 C (97.2 F) 11/08/2023 9:17 AM CDT Respiratory Rate 18 2023 11:2 4 AM MACHINE CERAMIC COATER Oxygen Saturation 95% 06/15/2024 3:18 PM MACHINE CERAMIC COATER Inhaled Oxygen Concentration - - Weight 100.4 kg (221 lb 6.4 oz) 06/15/2024 3:18 PM MACHINE CERAMIC COATER Height 177.8 cm (5' 10 ) 06/15/2024 3:18 PM MACHINE CERAMIC COATER Body Mass Index 31.77 06/15/2024 3:18 PM MACHINE CERAMIC COATER Plan of Treatment Not on file Medical Devices Implanted Type Area Superintendent Refuse Disposal Device Identifier Shelf Expiration Date Model / Serial / Lot Medtronic Card Vasc Surgery 2.50 X 22mm Geo Hagerman Rx Coronary Stent [id number] - S0 - [id number] Implanted:Qty: 1 on 11/08/2023 by Davin Kaur MD at [facility] Stent Medtronic Card Vasc Surgery 10/29/2025 [id number] / 0 / [id number] Procedures Procedure Name Priority Date/Time Associated Diagnosis Comments US CAROTIDS DUPLEX BILATERAL Schedule Routine, Read Routine (OP Routine) 06/08/2024 2:14 PM MACHINE CERAMIC COATER Bilateral carotid artery stenosis CT ABDOMEN PELVIS W CONTRAST ED 09/19/2022 2:38 PM CDT from Last 3 Months or Most Recently Relevant to Health Maintenance Results * US Carotids Duplex Bilateral (06/08/2024 2:14 PM MACHINE CERAMIC COATER) Anatomical Region Laterality Modality Vascular Bilateral Ultrasound 06/08/2024 Narrative 06/10/2024 1:09 PM MACHINE CERAMIC COATER [employer] Job ID: [id number] [employer] Document ID: [id number] Dictated date/time: [id number] CAROTID DUPLEX REASON FOR EXAM Carotid stenosis. COMMENTS ON THE RIGHT The peak systolic velocity of CCA is 65, ICA of 62. Smooth heterogenous plaque in the proximal ICA. ECA velocity is 91. Antegrade flow noted, vertebral artery velocity of 39. COMMENTS ON THE LEFT The peak systolic velocity of CCA is 58, ICA of 132, end-diastolic velocity 40. Smooth heterogenous plaque in the proximal ICA. ECA velocity 94. Antegrade flow noted, vertebral artery velocity of 42. OVERALL IMPRESSION 1. Less than 50% stenosis, right internal carotid artery, with 50% to 69% stenosis on the left. 2. Antegrade flow noted, bilateral vertebral arteries. Job ID/Internal Job ID: [id number] us Pauline BAIN IMG US PROCEDURES Final Res ult * CT Abdomen Pelvis W Contrast (09/19/2022 2:38 PM CDT) Anatomical Region Laterality Modality Body N/A Computed Tomogra phy 09/19/2022 3:27 PM CDT Narrative 09/19/2022 3:47 PM CDT EXAM DESCRIPTION: CT ABDOMEN PELVIS W CONTRAST REASON FOR STUDY: RLQ abdominal pain, appendicitis suspected (Age => 15y), RUQ, RLQ tenderness with guarding. N/V Pt reports Since Thrusday I've had some pain in my right upper abd and some nausea. Pt denies any vomiting, fevers, or diarrhea. Hx of hernia repair and cholecystectomy TECHNIQUE: CT scan of the abdomen and pelvis performed with intravenous and without oral contrast using helical scanning technique with dynamic intravenous contrast injection. Reconstructed coronal and sagittal MPR images reviewed. All images stored on PACS. Automated exposure control was used as a dose optimization technique for this examination. CONTRAST TYPE/DOSE: 100mL of IOVERSOL 350 MG IODINE/ML INTRAVENOUS SYRINGE injected via intravenous COMPARISON: None available REFERENCE: Per ACR white paper recommendations, unless otherwise specified no follow-up imaging is recommended for incidental renal and adrenal lesions per consensus recommendations based on imaging criteria. Further lab evaluation could be pursued based on clinical findings. FINDINGS: LOWER CHEST: No significant pulmonary abnormalities. No effusion. LIVER: 8 mm low attenuating lesion with fluid attenuation, possibly hepatic cyst, within hepatic segment 5/7 (2:42). GALLBLADDER: Surgically absent. BILE DUCTS: No intrahepatic or extrahepatic ductal dilatation. SPLEEN: Normal size. No focal lesions. PANCREAS: No identified cystic or solid masses. No significant calcifications. No adjacent inflammation or peripancreatic fluid collections. Pancreatic duct not dilated. ADRENALS: Normal. KIDNEYS/URINARY TRACT: 20 mm fluid attenuating lesion within the midpole of left kidney, likely cyst. Symmetric renal enhancement. No hydronephrosis or hydroureter. Urinary bladder is unremarkable. GI: No dilated bowel loops. No obvious wall thickening. Normal appendix. No significant diverticular disease. PERITONEUM: No ascites [...] 09/19/2022 3:47 PM - Electronically signed by Heloi Lyons M.D. WW: JERICHO Report ID: [id number] Reading Location: [id number] Procedure Note Helio Lyons MD PhD - [...] Helio Lyons M.D. WW: JERICHO Report ID: [id number] Reading Location: [place] [address] PROCEDURES Final Re sult from Last 3 Months or Most Recently Relevant to Health Maintenance Insurance MEDICARE [facility] MEDICARE FOR LIFE [facility] Advance Directives For more information, please contact: [phone] * Full Code (Latest Code Status on File) Date Activated Date Inactivated Comments 11/08/2023 11:47 AM 11/08/2023 6:44 PM * Full Code Date Activated Date Inactivated Comments 10/19/2023 4:24 PM 10/19/2023 10:58 PM * Full Code Date Activated Date Inactivated Comments 04/04/2023 3:43 AM 2023 6:02 PM Care Teams Desk Clerk Relationship Specialty Start Date End Date Eddy Pelaez II, MD PCP - General Family Practice 02/18/22
--- OUTSIDE RECORDS SUMMARY | 2024-07-05 00:57 | XMS_ITS | Clinical Summary ---
Author Organization [facility] Address [address] [place] [address] Care Team Providers Care Website Developer Name Role Phone Unavailable Primary Care Provider Unavailabl e Source Comments [facility],non-owned Affiliates and Associated Physician Practices is amultiple site organization consisting of ambulatory clinics and hospital sitesin [place], [place], [place] and [place]. This disclosure is being madepursuant to the Care Everywhere program and may not contain all information available regarding this patient. Last updated 18.[facility] Immunizations Name Administration Dates Next Due Covid [...]
--- OUTSIDE RECORDS SUMMARY | 2024-07-05 00:57 | XMS_ITS | Clinical Summary ---
Author Organization [facility] Address [address] [place] [address] Care Team Providers Care Building Materials Sales Attendant Name Role Phone Benigno GONSALEZ MD, Eddy [...] Encounters Date Type Department Care Team Description 06/29/2024 Patient Outreach [address] [phone] Ирина Guerrero MA Quality Gap Closure 06/19/2024 4:20 PM ULTRASOUND TECHNOL Office Visit [address] [address] Eddy Pelaez II, MD Hypertension Follow Up (Patient presents to follow up for hypertension and lab results) 06/19/2024 Travel 06/19/2024 Patient Outreach [address] [address] Eddy Pelaez II, MD Pre-visit Gap Closure 06/14/[address] [address] Eddy Pelaez II, MD Information 04/21/[address] [address] Eddy Pelaez II, MD Medication Request 04/17/[address] [address] Eddy Pelaez II, MD Refill Request from [...] Comments Blood Pressure 134/78 06/19/2024 4:33 PM ULTRASOUND TECHNOL Pulse 78 06/19/2024 4:22 PM ULTRASOUND TECHNOL Temperature 36.7 C (98.1 F) 06/19/2024 4:22 PM ULTRASOUND TECHNOL Respiratory Rate 16 08/26/2023 7:20 AM CDT Oxygen Saturation 97% 06/19/2024 4:22 PM ULTRASOUND TECHNOL Inhaled Oxygen Concentration - - Weight 98.9 kg (218 lb) 06/19/2024 4:22 PM ULTRASOUND TECHNOL Height 180.3 cm (5' 11 ) 08/26/2023 7:20 AM CDT Body Mass Index 30.4 08/26/2023 7:20 AM CDT Plan of Treatment Upcoming Encounters Date Type Department Care Team (Late st Contact Info) Description 08/25/2024 11:40 AM CDT Office Visit [facility] Medical [facility]is[facility]ial[facility] [address] [place] [address] Nazario Womack DO [address] [place] [address] 09/18/2024 4:20 PM CDT Office Visit [facility] Family Medicine - [place] [address] [place] [phone] Eddy Pelaez II, MD [address] [place], [place] [address] Health Maintenance Due Date Last Done Comments [...] SCREENING Completed 10/13/2023, 09/19/2022, 09/19/2022 PHQ-2 (Physician [place]) Completed 06/19/2024 Meningococcal B Vaccine Aged Out No l onger eligible based on patient's age to complete this topic Meningococcal Vaccine Aged Out No mana mayelin eligible based on patient's age to complete this topic RSV Immunizations Under 20 Months Aged Out No longer eligible b ased on patient's age to complete this topic Medical Devices Implanted Type Area Box Puller Device Identifier Shelf Expiration Date Model / Serial / Lot Urolift - [id number] Implanted:Qt y: 2 on 04/02/2022 by Rao iVlleda MD at [facility] Urology N/A: Prostate [employer] [id number] 09/30/2023 [id number] / / [id number] Urolift - [id number] Implanted:Qt y: 2 on 04/02/2022 by Rao Villeda MD at [facility] Urology N/A: Prostate TELE[employer] MEDICAL [id number] 10/22/2023 [id number] / / [id number] Urolift - [id number] Implanted:Qt y: 2 on 04/02/2022 by Rao Villeda MD at [facility] Urology N/A: Prostate TELE[employer]ICAL [id number] 09/24/2023 [id number] / / [id number] Procedures Procedure Name Priority Date/Time Associated Diagnosis Comments PROSTATE SPECIFIC ANTIGEN,SCREENING Routine 06/17/2024 9:41 AM ULTRASOUND TECHNOL Prostate cancer screening LIPID PANEL Routine 06/17/2024 9:41 AM ULTRASOUND TECHNOL Mixed hyperlipidemia COMPREHENSIVE METABOLIC PANEL Routine 06/17/2024 9:41 AM ULTRASOUND TECHNOL Primary hypertension CBC W/DIFF AUTOMATED Routine 06/17/2024 9:41 AM ULTRASOUND TECHNOL Primary hypertension HEMOGLOBIN, GLYCOSYLATED Routine 06/17/2024 9:41 AM ULTRASOUND TECHNOL Prediabetes HEPATITIS C ANTIBODY W/RFX TO HCV RNA Routine 11/15/2021 9:29 AM CDT COLONOSCOPY GENERIC (SCAN ORDER) 01/19/2017 from Last 3 Months or Most Recently Relevant to Health Maintenance Results * (ABNORMAL) HEMOGLOBIN, GLYCOSYLATED (06/17/2024 9:41 AM ULTRASOUND TECHNOL) HGB A1C 6.0(H) 4.8 - 5.6 % [facility] 1 Comment: Prediabetes: 5.7 - 6.4 Diabetes: >6.4 Glycemic control for adults with diabetes: <7.0 06/17/2024 9:41 AM ULTRASOUND TECHNOL 06/17/2024 Narrative [facility] - 06/18/2024 9:07 AM ULTRASOUND TECHNOL Performed at: [address] [place] [id number] [employer]: Calvin Escudero PhD, Phone: [phone] Eddy Pelaez II, MD LABORATORY Final R esult Performing Organization Address [facility] Co de Phone Number [facility] [address] [place] [address] [facility] * PROSTATE SPECIFIC ANTIGEN,SCREENING (06/17/2024 9:41 AM ULTRASOUND TECHNOL) PSA 2.8 0.0 - 4.0 ng/mL [facility] 1 Comment: Scarlet ECLIA methodology. According to the [place] [employer], Serum PSA should decrease and [...] absence of malignant disease. 06/17/2024 9:41 AM ULTRASOUND TECHNOL 06/17/2024 [facility] - 06/18/2024 9:07 AM ULTRASOUND TECHNOL Performed at: [address] [place] [id number] [employer]: Calvin Escudero PhD, Phone: [phone] Eddy Pelaez II, MD LABORATORY Final R esult Performing Organization Address [facility] Co de Phone Number [facility] [address] [place] [address] [facility] * (ABNORMAL) COMPREHENSIVE METABOLIC PANEL (06/17/2024 9:41 AM ULTRASOUND TECHNOL) GLUCOSE 107(H) 70 - 99 mg/dL [facility] [...] 44 IU/L [facility] 1 06/17/2024 9:41 AM ULTRASOUND TECHNOL 06/17/2024 Narrative [facility] - 06/18/2024 9:07 AM ULTRASOUND TECHNOL Performed at: - [address] [id number] [employer]: Calvin Escudero PhD, Phone: [phone] Eddy Pelaez II, MD LABORATORY Final R esult [facility] [address] [place] [address] [facility] 1 * (ABNORMAL) LIPID PANEL (06/17/2024 9:41 AM ULTRASOUND TECHNOL) Pathologist [facility] CHOLESTEROL 146 100 - 199 mg/dL [facility] 1 TRIGLYCERIDES 198(H) 0 - 149 mg/dL [facility] 1 HDL 47 >39 mg/dL [facility] 1 VLDL CALCULATION 33 5 - 40 mg/dL [facility] 1 LDL (CALCULATED) 66 0 - 99 mg/dL [facility] 1 06/17/2024 9:41 AM ULTRASOUND TECHNOL 06/17/2024 Narrative [facility] - 06/18/2024 9:07 AM ULTRASOUND TECHNOL Performed at: 01 - [facility] [address] [id number] [employer]: Calvin Escudero PhD, Phone: [phone] Eddy Pelaez II, MD LABORATORY Final R esult [facility] [address] [place] [address] [facility] 1 * CBC W/DIFF AUTOMATED (06/17/2024 9:41 AM ULTRASOUND TECHNOL) Pathologist [facility] WBC 7.6 3.4 - 10.8 x10E3/uL [facility] [...] 0.1 x10E3/uL [facility] 1 06/17/2024 9:41 AM ULTRASOUND TECHNOL 06/17/2024 Narrative [facility] - 06/18/2024 9:07 AM ULTRASOUND TECHNOL Performed at: 01 - [facility] [address] [id number] [employer]: Calvin Escudero PhD, Phone: [phone] us Eddy Pelaez II, MD LABORATORY Final R esult Performing Organization Address City/[facility]/ZIP Co de Phone Number [facility] [address] [place] [address] [facility] 1 * HEPATITIS C ANTIBODY W/RFX [...] a test for HCV RNA (test code 48687) is suggested. For additional information please refer to http://education.Metconnex/faq/IHA96e5 (This link is being provided for informational/ educational purposes only.) 11/15/2021 9:29 AM CDT 11/15/2021 9:32 AM CDT Narrative [facility] - 11/17/2021 2:26 PM CDT FASTING:YES FASTING: YES us Eddy Pelaez II, MD LABORATORY Final R esult Performing Organization Address City/[facility]/ZIP Co de Phone Number [facility] [address] [phone] * COLONOSCOPY GENERIC (01/19/2017) 01/19/2017 Narrative 01/19/2017 Ordered by an unspecified provider. us Documents Scanned SCANNING Final Result from Last 3 Months or Most Recently Relevant to Health Maintenance Insurance [employer] [facility] MEDICARE Care Teams Building Materials Sales Attendant Relationship Specialty Start Date End Date Eddy Pelaez II, MD [address] [place] [phone] PCP - General FAMILY PRACTICE 06/02/21
--- OUTSIDE RECORDS SUMMARY | 2024-07-05 00:57 | XMS_ITS | Clinical Summary ---
Author Organization [facility] at [facility] Address [address] [place] [address] Care Team Providers Care Patient Attendant Name Role Phone Benigno GONSALEZ MD, [...] 05/13/2023 Assessment & Plan (06/09/2024 11:02 AM DATA TYPIST): Remains asymptomatic. Moderate left ICA stenosis. Continue aspirin statin therapy and continue risk factor modifications. Follow-up in 1 year for routine surveillance with carotid duplex. Assessment & Plan (06/16/2023 11:08 AM DATA TYPIST): Stable. After long discussion with the patient about his history I do not feel that this was a symptomatic carotid stenosis that led to his hospitalization. This is supported by the timeline and prior occurrence. Recommend ongoing medical therapy follow up 6 months with carotid duplex. Assessment & Plan (05/14/2023 10:45 AM DATA TYPIST): CTA of the head and neck per [...] 04/03/2023 Assessment & Plan (06/16/2023 11:07 AM DATA TYPIST): Hyperlipidemia chronic and controlled. Continue Zocor. Hypertension 04/03/2023 Assessment & Plan (06/16/2023 11:07 AM DATA TYPIST): Hypertension chronic and controlled. Continue current medical [...] Department Care Team Description 06/15/2024 3:15 PM DATA TYPIST Office Visit [facility] Cardiology [address] [place] [phone] Davin Kaur MD Dyspnea, unspecified type (Primary Dx) 06/08/2024 2:15 PM DATA TYPIST Office Visit [facility] Vascular and Vein Surgery [address] [place] [address] Melvi Engel NP Bilateral carotid artery stenosis (Primary Dx); Secondary hypertension; Mixed hyperlipidemia 06/08/2024 1:30 PM DATA TYPIST - 06/08/2024 11:59 PM DATA TYPIST Hospital Encounter [facility] Medical Office Building 2 Vascular [address] [place] [address] Bilateral carotid artery stenosis Discharge Disposition: Discharge to home or self care 06/06/2024 3:30 PM DATA TYPIST Office Visit [facility] Neurology [address] [place] [phone] Anoop Villeda Si, MD Multiple lacunar infarcts (HCC) (Primary Dx); Bilateral carotid artery stenosis 05/02/2024 Telephone [facility] [address] [place] [address] Davin Kaur MD Cardiac clearance [...] Relation Name Comments Heart disease Father Kali Brownlee Stroke Father Kali Brownlee Blood Clot Mother Relation Name Status Comments Father Kali Brownlee Mother Social History Tobacco Use Types Packs/Day Years Used Date Smoking Tobacco: Former Cigarettes 1 31 Q uit: 03/30/2004 Smokeless Tobacco: Never Tobacco Cessation:Counseling Given: Not Answered [facility] Utilities Answer Date Recorded In the past [...] often do you attend chur ch or zoroastrian services? 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 Not on file Not on file Not on file Obstetrics History Last Filed Vital Signs Vital Sign Reading Time Taken Comments Blood Pressure 138/87 06/15/2024 3:18 PM DATA TYPIST Pulse 77 06/15/2024 3:18 PM DATA TYPIST Temperature 36.2 C (97.2 F) 11/08/2023 9:17 AM CDT Respiratory Rate 18 2023 11:2 4 AM DATA TYPIST Oxygen Saturation 95% 06/15/2024 3:18 PM DATA TYPIST Inhaled Oxygen Concentration - - Weight 100.4 kg (221 lb 6.4 oz) 06/15/2024 3:18 PM DATA TYPIST Height 177.8 cm (5' 10 ) 06/15/2024 3:18 PM DATA TYPIST Body Mass Index 31.77 06/15/2024 3:18 PM DATA TYPIST Plan of Treatment Health Maintenance Due Date [...] Completed 09/19/2022 Medical Devices Implanted Type Area Pharmacology Teacher Device Identifier Shelf Expiration Date Model / Serial / Lot Medtronic Card Vasc Surgery 2.50 X 22mm Geo [employer] Rx Coronary Stent [id number] - S0 - [id number] Implanted:Qty: 1 on 11/08/2023 by Davin Kaur MD at [facility] Stent Medtronic Card Vasc Surgery 10/29/2025 [id number] / 0 / [id number] Procedures Procedure Name Priority Date/Time Associated Diagnosis Comments US CAROTIDS DUPLEX BILATERAL Schedule Routine, Read Routine (OP Routine) 06/08/2024 2:14 PM DATA TYPIST Bilateral carotid artery stenosis CT ABDOMEN PELVIS W CONTRAST ED 09/19/2022 2:38 PM CDT from Last 3 Months or Most Recently Relevant to Health Maintenance Results * US Carotids Duplex Bilateral (06/08/2024 2:14 PM DATA TYPIST) Anatomical Region Laterality Modality Vascular Bilateral Ultrasound 06/08/2024 Narrative 06/10/2024 1:09 PM DATA TYPIST [employer] Job ID: [id number] [employer] Workflow Management Document ID: [id number] Dictated date/time: [id number] CAROTID DUPLEX REASON FOR EXAM Carotid stenosis. [...] bilateral vertebral arteries. Job ID/Internal Job ID: [id number] us Pauline BAIN IMArmand US PROCEDURES Final [...] Helio Lyons M.D. WW: JERICHO Report ID: [id number] Reading Location: [place] [address] Procedure Note eHlio Lyons MD PhD - 09/19/2022 EXAM DESCRIPTION: [...] Helio Lyons M.D. WW: JERICHO Report ID: [id number] Reading Location: [id number] Tad [address] CT PROCEDURES Final Re sult from Last 3 Months or Most Recently Relevant to Health Maintenance Insurance MEDICARE [id number] [employer] MEDICARE [facility] Address: [address] [address] [place] [address] [facility] Advance Directives For more information, please contact: [phone] * Full Code (Latest Code Status on File) Date Activated Date Inactivated Comments 11/08/2023 11:47 AM 11/08/2023 6:44 PM * Full Code Date Activated Date Inactivated Comments 10/19/2023 4:24 PM 10/19/2023 10:58 PM * Full Code Date Activated Date Inactivated Comments 04/04/2023 3:43 AM 2023 6:02 PM Care Teams Patient Attendant Relationship Specialty Start Date End Date Eddy Pelaez II, MD PCP - General Family Practice 02/18/22
--- OUTSIDE RECORDS SUMMARY | 2024-07-05 00:57 | XMS_ITS | Referral Summary ---
Author Organization [facility] Address [address] [place] [address] Care Team Providers Care National Expansion Recruiter Name Role Phone Unavailable Primary Care Provider Unavailabl e Source Comments [facility],non-owned Affiliates and Associated Physician Practices is amultiple site organization consisting of ambulatory clinics and hospital sitesin [place], [place], [place] and [place]. This disclosure is being madepursuant to the Care Everywhere program and may not contain all information available regarding this patient. Last updated 18.[facility] T[employer] Twitter Dashboard Immunizations Name Administration Dates Next Due Covid [...]
[2024-07-05] MEDS: ACETAMINOPHEN 500 MG TABLET 1000 MG PO (06:25)
[2024-07-05] MEDS: LACTATED RINGERS 1,000 ML 30 ML IV CONT ×2 (06:30→10:12)
[2024-07-05] MEDS: TRANEXAMIC ACID 1,000MG/ISO100 1,000 MG/100 ML BAG 200 MG IVPB (06:30)
--- NOTE | 2024-07-05 06:57 | P.PNAN_ITS ---
Anes - Initial Pre Proc Eval Procedure: Operation Date: 07/05/24 07:30 Proposed Procedures p Left Total Hip Arthroplasty - Otilio Martin MD Date/Time: 07/05/24 06:57 Surgeon: Otilio Martin MD Pre Op Diagnosis: Lt Hip O A Patient Data Age: 69 Gender: M Height: 1.83 m Weight: 96.8 kg Last Vital Signs Temp 97.8 F 06/21/24 14:11 Resp 16 06/21/24 14:11 Pulse Ox 95 06/21/24 14:11 O2 Del Method Room Air 06/21/24 14:11 Allergies Allergy/AdvReac Type Severity Reaction Status Date / Time amoxicillin Allergy Unknown Unknown Verified 07/05/24 06:42 Home Medications ?Medication ?Instructions ?Recorded ?Confirmed ?Type amlodipine 5 mg tablet 5 mg PO DAILY 07/29/21 07/05/24 History metoprolol tartrate 25 mg tablet 12.5 mg PO BID 07/29/21 07/05/24 History simvastatin 40 mg tablet 40 mg PO DAILY 07/29/21 07/05/24 History tamsulosin 0.4 mg capsule 0.4 mg PO DAILY 07/29/21 07/05/24 History aspirin 81 mg chewable tablet 81 mg PO DAILY 05/01/24 07/05/24 History clopidogrel 75 mg tablet (Plavix) 75 mg PO DAILY 05/01/24 07/05/24 History Patient hx anesthesia problems: none Family hx anesthesia problems: none Results Review: All pre-operative results and documents have been reviewed as part of the pre- operative evaluation. [facility] Past Medical History Medical History Rotator cuff tendinitis Right shoulder pain Degenerative joint disease (DJD) of hip HTN (hypertension) High cholesterol SOB (shortness of breath) Vision abnormalities Left hip pain Surgical History Surgical History History of laparoscopic cholecystectomy Family History Family History Father Hypertension Cerebrovascular accident Acute myocardial infarction High cholesterol Social History Social History Smoking packs per day: 1 Smoking cigarettes per day: 20.0 Years smoked: 35 Smoking pack-years: 35.00 Smoking status: Former smoker Tobacco type: cigarettes Smoking end date: 05/24/04 Additional smoking assessment comments: Denies in nicotine Alcohol intake: current Substance use: never Living arrangements: with family Additional living arrangements comments: Spiritual care concerns: No Anes - Eval Final PreProcedure Day of Procedure 07/05/24 06:57 Patient weight: normal Lungs: normal air movement Airway: Mallampati scale class II Neurological: alert and oriented Last oral intake: >/= 8 hours ASA classification: III Emergent: no Anesthetic plan: proceed Anesthesia type and monitoring: general ETT and standard monitoring Results Review: All pre-operative results and documents have been reviewed as part of the pre- operative evaluation. HTN, hyperlipidemia, ex smoker, quit 2003. Pt had PTCA 09/2023, cardiology cleared to hold plavix and proceed w elective sx today. Informed Consent: The patient's anesthetic plan and its attendant risks and benefits were discussed with the patient/family/POA. Questions were solicited and answers provided to the satisfaction of the patient/family/POA.
--- NOTE | 2024-07-05 06:59 | SUR.PREOP ---
SMALL SCABBED SCRATCH TO POSTERIOR LEFT CALF, SMALL PINK SCRATCH TO POSTERIOR LEFT THIGH
--- NOTE | 2024-07-05 07:12 | WPDHPUPDATE1 ---
History and Physical Update Update Date/Time: 07/05/24 07:12 History and Physical has been reviewed, including an updated exam of the patient. There are NO changes in the patient's condition. Risks, benefits, and alternatives have been discussed and questions answered. Patient agrees to proceed with procedure.
[2024-07-05] MEDS: ceFAZolin 2 GM/D5W 50 ML 2 GM/50 ML BAG IVPB ×2 (08:31→17:38)
[2024-07-05] MEDS: SODIUM CHLORIDE 0.9% IV 37.7 ML, MORPHINE SULFATE INJ (*CRX) 2 MG, ROPivacaine HCL 1% 2... INFILTRATE (08:31)
--- NOTE | 2024-07-05 09:56 | W.PM.PROC2 ---
Procedure Note - Detailed Date of Procedure 07/05/24 Pre-op Diagnosis Lt Hip O A Post-op Diagnosis Same Procedure Performed L [facility] Surgeon Otilio Martin MD Anesthesia General Description of Procedure THE PATIENT WAS TAKEN TO THE OPERATING ROOM IN STABLE CONDITION AND WAS PLACED IN THE LATERAL DECUBITUS AND THE LEFT LOWER EXTREMITY WAS PREPPED AND DRAPED IN THE STERILE FASHION. INCISION WAS MADE IN THE POSTERIOR LATERAL SIDE OF THE HIP, DOWN TO THE FASCIA LAYER. THE FASCIA WAS INCISED. THE HIP WAS EXPOSED. THE SHORT EXTERNAL ROTATORS WERE EXPOSED. THE SCIATIC NERVE WAS IDENTIFIED. INCISION WAS MADE THROUGH THE SHORT EXTERNAL ROTATORS AND THE CAPSULE OF THE HIP JOINT. THE HIP WAS DISLOCATED. AN OSTEOTOMY WAS MADE TO THE FEMORAL NECK ABOUT 1 CM PROXIMAL TO THE LESSER TROCHANTER. THE ACETABULUM WAS EXPOSED. THERE WAS SEVERE DJD SEEN. THE ACETABULUM WAS REAMED TO 57 MM. A 57 MM TRIAL WAS PLACED IN 35 DEG OF ABDUCTION AND ANTEVERSION WAS IN ALIGNMENT WITH THE TRANS ACETABULAR LIGAMENT. THE FIT WAS EXCELLENT. THE TRIAL WAS REMOVED. A 58 MM BIOMET G7 COMPONENT WAS THEN TAPPED IN TO PLACE IN 35 DEG OF ABDUCTION AND ANTEVERSION IN ALIGNMENT WITH THE TRANSVERSE ACETABULAR LIGAMENT. THE FIT WAS EXCELLENT. THE ACETABULAR LINER WAS PLACED AND CHECKED FOR STABILITY. NEXT THE FEMUR WAS PREPARED WITH INITIAL CANAL FINDER THEN SEQUENTIAL BROACHING WITH A TAPERLOC HIP SYSTEM, UNTIL A 13 BROACH FIT WELL IN 15 OF ANTEVERSION. A 0 HIGH OFFSET NECK WITH 36 MM HEAD TRIAL WAS PLACED. THE SHUCK TEST WAS EXCELLENT AND THE STABILITY IN FLEXION AND ROTATION WAS EXCELLENT. LEG LENGTHS WERE GROSSLY EQUAL. TRIALS WERE REMOVED. A BIOMET TAPERLOC 13 STEM WAS PLACED WITH A HIGH OFFSET NECK THE FIT WAS EXCELLENT IN 15 DEG OF ANTEVERSION. A 0 CERAMIC 36 MM FEMORAL CERAMIC HEAD WAS PLACED. THE HIP WAS TRIALED AND THE STABILITY WAS EXCELLENT WERE THE LEG LENGTHS AND THE SHUCK TEST. THE WOUND WAS IRRIGATED WITH STERILE BETADINE AND WATER FOR 3 MIN. THEN WASHED AGAIN. THE CAPSULE AND THE EXTERNAL ROTATORS WERE APPROXIMATED WITH NUMBER 1 VICRYL. THE FASCIA WITH No 2 QUIL AND THE SUB CUTANEOUS LAYER WITH 2-0 ABSORBABLE SUTURE WITH A RUNNING 3-0 SUBCUTICULAR LAYER WELL. DERMABOND WAS PLACED AND STERILE DRESSING WAS APPLIED. PATIENT WAS PLACED BACK ON TO THE SUPINE POSITION AND WAS EXTUBATED Estimated Blood Loss 100 Complications No immediate complications Condition Stable Disposition PACU
[2024-07-05] MEDS: fentaNYL CITRATE INJ (*CRX) 100 MCG/2 ML VIAL 25 MCG IV PUSH ×8 (10:41→12:20)
[2024-07-05] MEDS: oxyCODONE HCL (*CRX) 5 MG TAB IR PO (13:21)
[2024-07-05] MEDS: KETOROLAC 15 MG/ML VIAL (*BKC) IV PUSH ×2 (15:21→20:58)
--- NOTE | 2024-07-05 15:41 | PCPTNOTE ---
attempted PT eval, pt is with OT and expresses arm heaviness which he describes feels like when I had my TIA , nursing staff is discussing calling hospitalist, will follow
--- NOTE | 2024-07-05 17:08 | P.CONIM_ITS ---
Assessment and Plan Assessment and plan (1) Heaviness of upper extremity: Code(s): R29.898 - Other symptoms and signs involving the musculoskeletal system Status: Acute Assessment and Plan: Patient states this is new since surgery and has not improved over the last couple hours CTA brain and carotids negative for acute stroke MRI C-spine and thoracic spine for possible nerve impingement HPI Date of Consult Consult date: 07/05/24 Requesting Physician: Otilio Martin MD Primary Care Provider: Eddy Pelaez Consult Narrative Reason for consult: Stroke-like symptoms after surgery Narrative: Kareem Goldberg is a 69 year old male presents the hospital for planned left hip surgery. After OR he immediately complained of left arm heaviness. He has trouble describing the symptoms. He states that slow to move. Denies numbness, tingling, changes in sensation from touch. Hospitalist team was consulted for possible stroke. Patient states this had TIAs in the past, and since then he has been compliant with his medications he is on a statin, daily aspirin, and Plavix. Plavix has been hold on last week for planned surgery. Review of Systems 2 Review of Systems: 12 systems were reviewed and are negativ e except for as per HPI. [facility] Past Medical History Medical History Rotator cuff tendinitis Right shoulder pain Degenerative joint disease (DJD) of hip HTN (hypertension) High cholesterol SOB (shortness of breath) Vision abnormalities Left hip pain Surgical History Surgical History History of laparoscopic cholecystectomy Family History Family History Father Hypertension Cerebrovascular accident Acute myocardial infarction High cholesterol Social History Social History Smoking packs per day: 1 Smoking cigarettes per day: 20.0 Years smoked: 35 Smoking pack-years: 35.00 Smoking status: Former smoker Additional smoking assessment comments: Denies in nicotine Alcohol intake: current Substance use: never Do You Feel Safe in your Home?: No Lack of Transportation: No Lack of Food: Never True Current Housing: I Have Housing Concerned About Future Housing: No Difficulty Paying Gas/Electric Bills: No Difficulty Paying for Meds: No Currently Unemployed: No Education: Associate Degree Difficulty w/ Childcare or Family Care: No Living arrangements: with family Additional living arrangements comments: Spiritual care concerns: No Meds Home Medications and Allergies Home Medications ?Medication ?Instructions ?Recorded ?Confirmed ?Type amlodipine 5 mg tablet 5 mg PO DAILY 07/29/21 07/05/24 History metoprolol tartrate 25 mg tablet 25 mg PO DAILY 07/29/21 07/05/24 History simvastatin 40 mg tablet 40 mg PO DAILY 07/29/21 07/05/24 History tamsulosin 0.4 mg capsule 0.4 mg PO DAILY 07/29/21 07/05/24 History aspirin 81 mg chewable tablet 81 mg PO DAILY 05/01/24 07/05/24 History clopidogrel 75 mg tablet (Plavix) 75 mg PO DAILY 05/01/24 07/05/24 History hydrochlorothiazide 12.5 mg tablet 12.5 mg PO DAILY 07/05/24 07/05/24 History Allergies Allergy/AdvReac Type Severity Reaction Status Date / Time amoxicillin Allergy Unknown Unknown Verified 07/05/24 06:42 Vital Signs Vital Signs - 24 hr 07/05/24 07:00 07/05/24 10:12 07/05/24 10:25 Temperature 97.5 F L 98.2 F Pulse Rate 63 68 77 Respiratory Rate 18 10 L 14 Blood Pressure 119/66 140/74 147/87 H Pulse Oximetry 97 99 99 Oxygen Delivery Room Air Simple Face Mask Simple Face Mask Oxygen Flow Rate 6 6 07/05/24 10:40 07/05/24 10:55 07/05/24 11:10 Temperature Pulse Rate 74 78 73 Respiratory Rate 12 12 14 Blood Pressure 145/83 H 148/81 H 146/90 H Pulse Oximetry 97 99 97 Oxygen Delivery Simple Face Mask Simple Face Mask Simple Face Mask Oxygen Flow Rate 6 6 6 07/05/24 11:25 07/05/24 11:40 07/05/24 11:55 Temperature Pulse Rate 72 85 77 Respiratory Rate 10 L 13 16 Blood Pressure 145/83 H 130/82 131/83 Pulse Oximetry 94 97 94 Oxygen Delivery Nasal Cannula Nasal Cannula Nasal Cannula Oxygen Flow Rate 2 2 2 07/05/24 12:10 07/05/24 12:25 07/05/24 12:40 Temperature Pulse Rate 75 83 84 Respiratory Rate 13 Blood Pressure 126/78 154/85 H 131/82 Pulse Oximetry 95 95 96 Oxygen Delivery Nasal Cannula Nasal Cannula Nasal Cannula Oxygen Flow Rate 2 2 2 07/05/24 12:55 07/05/24 13:15 07/05/24 13:45 Temperature Pulse Rate 79 72 66 Respiratory Rate 16 16 Blood Pressure 118/68 124/61 130/75 Pulse Oximetry 96 96 99 Oxygen Delivery Nasal Cannula Nasal Cannula Nasal Cannula Oxygen Flow Rate 2 2 2 07/05/24 14:15 07/05/24 15:12 Temperature Pulse Rate 74 72 Respiratory Rate 16 18 Blood Pressure 127/79 120/76 Pulse Oximetry 98 96 Oxygen Delivery Nasal Cannula Oxygen Flow Rate 2 Exam 2 Narrative: General: well appearing, appears stated age. HEENT: normocephalic, atraumatic. Mucous membranes moist. EOMI, PERRLA, bilateral sclera anicteric, no conjunctival injection. Neck supple without JVD, lymphadenopathy, or bruit. Respiratory: clear to ascultation bilaterally. No rales/rhonic/wheezes. Cardiovascular: Regular rate and rhythm, normal S1-S2 upon ascultation. No murmurs, rubs, or clicks. PMI is nondisplaced, capillary refill less than 3 second. Abdomen: Soft, round, no pulsatile masses, nondistended and nontender. No rebound, no guarding. No CVA tenderness, no hepatosplenomegaly. Bowel sounds present to all four quadrants. No high pitch or tinkling sounds, resonant to percussion. Extremities: No cyanosis, clubbing, or edema present. Pulses are palpable 2/2. Full range of motion is intact in upper extremities bilaterally. Patient complains of difficulty moving left lower leg but denies changes in sensation. Neuro: Alert and orientated x 4. PERRLA. Cranial nerves 2-12 intact without focal deficit. Skin: Warm, dry, and intact, without rash, erythema, or lesion. Psych: pleasant, cooperative, normal speech, normal affect, no hallucinations, no dysarthia NIH 0 Results Labs 07/05/24 18:13 Quality VTE Prophylaxis VTE prophylaxis: mechanical ordered and pharmacologic ordered Hospitalist MIPS Advance Care Plan I have confirmed that the patient's Advanced Care Plan is present, code status is documented, or surrogate decision maker is listed in patient medical record.: Yes Medication Reconciliation I have utilized all available resources to obtain, update and review the patients current medications (includes all prescriptions, OTC, herbals, cannabis, and nutritional supplements).: Yes
[2024-07-05] MEDS: SENNA/DOCUSATE SODIUM TABLET 2 TAB PO (17:38)
[2024-07-05 18:34] LABS: Estimated CRCL calculation 59 ml/min; Estimated Glomerular Filt Rate > 60
[2024-07-05] MEDS: oxyCODONE/ACETAMINOPHEN (*CRX) 5-325 MG TABLET 1 TABLET PO (20:57)
[2024-07-05] MEDS: FAMOTIDINE 20 MG TABLET PO (20:58)
[2024-07-05] MEDS: diazePAM (*CRX) 5 MG TABLET PO (20:58)
--- NOTE | ~2024-07-06 | MR_ITS ---
EXAMINATION: MR brain/brain stem wo con DATE: 07/06/2024 12:44 INDICATION: Left arm heaviness. TECHNIQUE: Magnetic resonance imaging (MRI) of the brain and brainstem was performed without intraven ous contrast. COMPARISON: CT head 07/05/2024 FINDINGS: There are acute infarcts in the right cerebellum. There is an acute infarct in the right fr ontal parietal region. There is a punctate old microhemorrhage in the right frontal parietal region. There is a small old infarct in the left cerebellum. There is an old lacunar infarcts in the bilatera l basal ganglia. There are scattered areas of nonspecific increased T2-weighted signal intensity in t he cerebral white matter. There is an old lacunar infarct in right thalamus. The ventricles are allen l in size. There is mild mucosal thickening in the paranasal sinuses. The orbits are normal. The mast oid air cells are normal. IMPRESSION: 1. Acute infarcts in the right cerebellum and right frontal parietal region. 2. 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 3. Mild nonspecific cerebral white matter disease, which likely represents chronic small vessel ische windy disease. Reviewed, dictated and finalized at location A. [facility]IER IMPRESSION: 1. Acute infarcts in the right cerebellum and right frontal parietal region. 2. Old infarcts in the left cerebellum, right thalamus, and bilateral basal carl glia. 3. Mild nonspecific cerebral white matter disease, which likely represents senior product analyst tabitha small vessel ischemic disease.
--- NOTE | ~2024-07-06 | XR_ITS ---
EXAMINATION: XR hip LT min 2V DATE: 07/05/2024 10:48 INDICATION: Total left hip arthroplasty. Postop. TECHNIQUE: 2 views of left hip on 3 radiographs were obtained. COMPARISON: Left hip radiographs 05/01/2024 FINDINGS: There is a total left hip arthroplasty in near-anatomic alignment. No fracture. There is ga s in the soft tissues, consistent with recent surgery. IMPRESSION: 1. Total left hip arthroplasty in near-anatomic alignment. Reviewed, dictated and finalized at location A. AGING ASSEMBLER
--- NOTE | ~2024-07-06 | MR_ITS ---
EXAMINATION: MR thoracic spine wo con DATE: 07/06/2024 12:43 INDICATION: Left arm heaviness. TECHNIQUE: Magnetic resonance imaging (MRI) of the thoracic spine was performed without intravenous c ontrast. COMPARISON: None FINDINGS: There is 4 degrees levocurvature of thoracic spine. There is 2 mm anterolisthesis of T1 on T2. Vertebral body heights are normal. There is mildly decreased disc height at T4-T5 and T5-T6. At T 4-T5, there is a central extrusion with mild central canal stenosis. At T5-T6, there is a central ext rusion with mild central canal stenosis. At T6-T7, there is a central extrusion with mild central can al stenosis. At T8-T9, there is a central protrusion with mild central canal stenosis. At T11-T12, th ere is a left central extrusion with mild central canal stenosis. There is multilevel facet joint ost eoarthritis, severe at many levels. There is mild neural foraminal stenosis at multiple levels on eit her side. At T8-T9, there is moderate right neural foraminal stenosis. The spinal cord signal intensi ty is normal. The conus medullaris is at T12-L1. IMPRESSION: 1. Moderate right neural foraminal stenosis at T8-T9. Otherwise mild thoracic spondylosis. Reviewed, dictated and finalized at location A. ETARY IMPRESSION: 1. Moderate right neural foraminal stenosis at T8-T9. Otherwise mild thoracic s pondylosis.
--- NOTE | ~2024-07-06 | CT_ITS ---
CTA brain carotid Ordering provider: Mickie Murillo APRN History: . stroke . Comparison: None. Technique: CT angiogram head and neck was performed following timed intravenous injection of contrast . Thin slice axial images and reformatted coronal images were obtained. Three dimensional reformatted images of the brain were also obtained using a [employer] workstation. DLP: 1865 mGy-cm FINDINGS: HEAD: --ANTERIOR AND MIDDLE CEREBRAL ARTERIES AND BRANCHES: Symmetric, of normal caliber and contour. --INTRACRANIAL INTERNAL CAROTID ARTERIES: Mild atheromatous disease without significant stenosis. No occlusion. --BASILAR ARTERY AND BRANCHES: Normal caliber and contour. No atheromatous disease. --POSTERIOR CEREBRAL ARTERIES: Normal caliber and contour --POSTERIOR COMMUNICATING ARTERIES: Not well visualized on the right, likely related to congenital ab sence or small size. The left posterior communicating artery is intact. --ANEURYSM: None visualized. --BRAIN: The ventricles are enlarged. The dilatation of the ventricles is proportional to the degree of sulcal prominence, not uncommon in the senescent brain. Decreased attenuation is identified within the periventricular white matter, likely secondary to micr ovascular ischemic disease. There is no mass, mass effect or midline shift. There is no abnormal extra-axial fluid collection or intracranial hemorrhage. Visualized paranasal sinuses are clear. The mastoid air cells are well aerated. No acute displaced fractures within the overlying cranium. NECK: --RIGHT CERVICAL CAROTID SYSTEM: Mild atheromatous disease of the common carotid artery and carotid b ulb as well as the proximal internal carotid artery without significant stenosis. Percent stenosis pe r NASCET criteria is 0% No carotid dissection --LEFT CERVICAL CAROTID SYSTEM: Mild atheromatous disease of the carotid bulb without significant mayra nosis. Percent stenosis per NASCET criteria is 0% No carotid dissection. --VERTEBRAL ARTERIES: Normal caliber and contour. Left vertebral artery is dominant. --VISUALIZED AORTIC ARCH AND BRANCHING VESSELS: Mild atheromatous disease but no significant stenosis . --SOFT TISSUES: Unremarkable. --CERVICAL SPINE: Age advanced degenerative changes. Anterior fixation hardware at the levels of C5, C6 and C7. IMPRESSION: Normal CTA head and neck. Percent stenosis per NASCET criteria is 0%. No large vessel occlusion. No significant asymmetry. Reviewed, dictated and finalized at location A. ENTATION SCIENTIST
--- NOTE | ~2024-07-06 | MR_ITS ---
EXAMINATION: MR cervical spine wo con DATE: 07/06/2024 12:44 INDICATION: Left arm heaviness. TECHNIQUE: Magnetic resonance imaging (MRI) of the cervical spine was performed without intravenous c ontrast. COMPARISON: None FINDINGS: Alignment is normal. Vertebral body heights are normal. There are changes of anterior fusio n procedure from C5 to C7 with healed interbody bone graft and anterior plate and screws. Interverteb ral disc heights are normal. The spinal cord signal intensity is normal. The following disc levels ar e specifically discussed: C2-C3: The disc does not extend beyond the endplate margin. There is no uncovertebral joint osteoarth ritis. There is mild left facet joint osteoarthritis. There is no neural foraminal stenosis. There is no central canal stenosis. C3-C4: There is a central extrusion. There is moderate right and mild left uncovertebral joint osteoa rthritis. There is severe bilateral facet joint osteoarthritis. There is moderate right and mild left neural foraminal stenosis. There is mild central canal stenosis. C4-C5: There is a central extrusion. There is mild bilateral uncovertebral joint osteoarthritis. Ther e is severe bilateral facet joint osteoarthritis. There is mild bilateral neural foraminal stenosis. There is mild central canal stenosis. C5-C6: There is mild left uncovertebral joint hypertrophy. There is mild bilateral facet joint osteoa rthritis. There is mild left neural foraminal stenosis. There is no central canal stenosis. C6-C7: There is mild left uncovertebral joint hypertrophy. There is no facet joint osteoarthritis. Th ere is mild left neural foraminal stenosis. There is no central canal stenosis. C7-T1: There is a central extrusion. There is mild bilateral uncovertebral joint osteoarthritis. Ther e is severe bilateral facet joint osteoarthritis. There is mild bilateral neural foraminal stenosis. There is mild central canal stenosis. IMPRESSION: 1. Mild cervical spondylosis. 2. Anterior fusion procedure from C5 to C7. Reviewed, dictated and finalized at location A. D IMMIGRATION
[2024-07-06] MEDS: ceFAZolin 2 GM/D5W 50 ML 2 GM/50 ML BAG IVPB ×2 (00:02→07:32)
[2024-07-06] MEDS: HYDROmorphone HCL INJ (*CRX) 1 MG/ML SYR IV PUSH (00:11)
[2024-07-06 01:08] VITALS: BP 112/50; PULSE 65; RESP 14; TEMP 36.5; O2SAT 95
[2024-07-06] MEDS: KETOROLAC 15 MG/ML VIAL (*BKC) IV PUSH ×3 (02:58→14:37)
[2024-07-06 05:52] VITALS: BP 116/49; PULSE 67; RESP 18; TEMP 36.9; O2SAT 96
[2024-07-06 06:30] LABS: Basophils Percent Auto 0.1 % (0.2-1.2); Hematocrit 34.7 % (42.0-52.0); Hemoglobin 11.4 g/dL (14.0-18.0); Immature Granulocyte Absolute 0.12 K/mm3 (0.00-0.031); Immature Granulocyte Percent A 0.8 % (0-0.5); Lymphocytes Absolute Auto 1.12 K/mm3 (0.9-3.2); Lymphocytes Percent Auto 7.2 % (18.3-44.2); Mean Corpuscular HGB Conc 32.9 g/dl (32-36); Mean Corpuscular Hemoglobin 31.3 pg (26-34); Mean Corpuscular Volume 95.3 fl (80-100); Mean Platelet Volume 10.9 fl (7.4-10.4); Monocytes Absolute Auto 1.5 K/mm3 (0.1-0.6); Monocytes Percent Auto 9.6 % (2.6-8.5); Neutrophils Absolute Auto 12.8 K/mm3 (1.3-6.7); Neutrophils Percent Auto 82.3 % (45.5-73.1); Platelet Count Result 190 k/mm3 (150-375); Red Blood Count 3.64 M/mm3 (4.6-6.20); Red Cell Distribution Width 13.1 % (11.5-14.5); White Blood Count 15.5 K/mm3 (4.5-10.0)
[2024-07-06 06:38] LABS: Anion Gap 8 mmol/L (4-12); Blood Urea Nitrogen 37 mg/dL (9-20); Calcium 8.7 mg/dL (8.4-10.2); Carbon Dioxide 29 mmol/L (22-30); Chloride 102 mmol/L (98-107); Estimated CRCL calculation 55 ml/min; Estimated Glomerular Filt Rate 56; Glucose 160 mg/dL (65-110); Sodium 139 mmol/L (137-145)
[2024-07-06] MEDS: ASPIRIN 325 MG ENTERIC TABLET 650 MG PO (07:31)
[2024-07-06] MEDS: METOPROLOL TARTRATE 25 MG TABLET PO (07:32)
[2024-07-06] MEDS: hydroCHLOROthiazide 12.5 MG CAPSULE PO (07:32)
[2024-07-06] MEDS: SENNA/DOCUSATE SODIUM TABLET 2 TAB PO (07:32)
[2024-07-06] MEDS: FAMOTIDINE 20 MG TABLET PO ×2 (07:33→20:12)
[2024-07-06] MEDS: amLODIPine BESYLATE 5 MG TABLET PO (07:33)
--- NOTE | 2024-07-06 07:37 | PM.IMPN ---
Progress Note: A&P Assessment and Plan (1) Heaviness of upper extremity: Code(s): R29.898 - Other symptoms and signs involving the musculoskeletal system Status: Acute Plan Kareem Goldberg is a 69 year old male presents the hospital for planned left hip surgery. After OR he immediately complained of left arm heaviness. He has trouble describing the symptoms. He states that slow to move. Denies numbness, tingling, changes in sensation from touch. Hospitalist team was consulted for possible stroke. Patient states this had TIAs in the past, and since then he has been compliant with his medications he is on a statin, daily aspirin, and Plavix. Plavix has been hold on last week for planned surgery. Left arm heaviness new since surgery. Mild and stable. CTA head and neck was negative. Does have history of TIA in the past and similar problem on the right side in the past. He is on dual antiplatelet therapy which will be recommended to be continued. He also has history of coronary artery disease and stent placement in October of 2023. Will need to continue aspirin and Plavix. Plavix if okay with orthopedics. Orthopedic is okay with starting Plavix Will further evaluate left arm heaviness with MRI brain MRI cervical spine and thoracic spine will also be ordered will also consult Neurology for evaluation. Coronary artery disease stent placement Hypertension Hyperlipidemia BPH Subjective Date/time seen: 07/06/24 07:37 Interval history: came in for left hip surgery which was completed yesterday. Started having left arm heaviness for which to hospice team was consulted. Feels better but still persist. CTA head and neck was negative. History of similar episode effecting is right side. Does have history of neck surgery. Follows with neurologist at [place]. Also had stent placed and October 2023. On aspirin Plavix for that. Review of Systems Review of Systems: All systems reviewed & are unremarkable except as noted in HPI and below Exam Narrative: General: well appearing, appears stated age. HEENT: normocephalic, atraumatic. Mucous membranes moist. EOMI, PERRLA, bilateral sclera anicteric, no conjunctival injection. Neck supple without JVD, lymphadenopathy, or bruit. Respiratory: clear to ascultation bilaterally. No rales/rhonic/wheezes. Cardiovascular: Regular rate and rhythm, normal S1-S2 upon ascultation. No murmurs, rubs, or clicks. Abdomen: Soft, round, no pulsatile masses, nondistended and nontender. No rebound, no guarding. No CVA tenderness, no hepatosplenomegaly. Bowel sounds present to all four quadrants. No high pitch or tinkling sounds, resonant to percussion. Extremities: No cyanosis, clubbing, or edema present. Pulses are palpable 2/2. Full range of motion is intact in upper extremities bilaterally. Sensation intact Neuro: Alert and orientated x 4. PERRLA. Cranial nerves 2-12 intact without focal deficit. Skin: Warm, dry, and intact, without rash, erythema, or lesion. Psych: pleasant, cooperative, normal speech, normal affect, no hallucinations, no dysarthia NIH 0 Objective Data Vital Signs Vital Signs: Vital Signs - 24 hr 07/05/24 10:12 07/05/24 10:25 07/05/24 10:40 Temperature 98.2 F Pulse Rate 68 77 74 Respiratory Rate 10 L 14 12 Blood Pressure 140/74 147/87 H 145/83 H Pulse Oximetry 99 99 97 Oxygen Delivery Simple Face Mask Simple Face Mask Simple Face Mask Oxygen Flow Rate 6 6 6 07/05/24 10:55 07/05/24 11:10 07/05/24 11:25 Temperature Pulse Rate 78 73 72 Respiratory Rate 12 14 10 L Blood Pressure 148/81 H 146/90 H 145/83 H Pulse Oximetry 99 97 94 Oxygen Delivery Simple Face Mask Simple Face Mask Nasal Cannula Oxygen Flow Rate 6 6 2 07/05/24 11:40 07/05/24 11:55 07/05/24 12:10 Temperature Pulse Rate 85 77 75 Respiratory Rate 13 16 13 Blood Pressure 130/82 131/83 126/78 Pulse Oximetry 97 94 95 Oxygen Delivery Nasal Cannula Nasal Cannula Nasal Cannula Oxygen Flow Rate 2 2 2 07/05/24 12:25 07/05/24 12:40 07/05/24 12:55 Temperature Pulse Rate 83 84 79 Respiratory Rate Blood Pressure 154/85 H 131/82 118/68 Pulse Oximetry 95 96 96 Oxygen Delivery Nasal Cannula Nasal Cannula Nasal Cannula Oxygen Flow Rate 2 2 2 07/05/24 13:15 07/05/24 13:45 07/05/24 14:15 Temperature Pulse Rate 72 66 74 Respiratory Rate 16 16 16 Blood Pressure 124/61 130/75 127/79 Pulse Oximetry 96 99 98 Oxygen Delivery Nasal Cannula Nasal Cannula Nasal Cannula Oxygen Flow Rate 2 2 2 07/05/24 15:12 07/05/24 18:47 07/05/24 19:58 Temperature 98.2 F 97.7 F Pulse Rate 72 74 78 Respiratory Rate 18 18 16 Blood Pressure 120/76 120/68 115/69 Pulse Oximetry 96 96 96 Oxygen Delivery Oxygen Flow Rate 07/06/24 01:08 07/06/24 05:52 Temperature 97.7 F 98.4 F Pulse Rate 65 67 Respiratory Rate 14 18 Blood Pressure 112/50 L 116/49 L Pulse Oximetry 95 96 Oxygen Delivery Oxygen Flow Rate Intake/Output Intake/Output: Intake & Output 07/03/24 07/04/24 07/05/24 07/06/24 23:59 23:59 23:59 23:59 Intake Total 940 50 Balance 940 50 Meds/Results Medications: Active Medications Generic Name Dose Route Start Last Admin Trade Name Freq PRN Reason Stop Dose Admin Acetaminophen 500 mg 07/05/24 09:02 Acetaminophen 500 Mg Tablet PO Q6H PRN Pain Rated 1-3 Amlodipine Besylate 5 mg 07/06/24 09:00 07/06/24 07:33 Amlodipine Besylate 5 Mg Tablet PO 5 mg DAILY [facility] Administration Aspirin 650 mg 07/06/24 09:00 07/06/24 07:31 Aspirin 325 Mg Enteric Tablet PO 650 mg DAILY [facility] Administration Clopidogrel Bisulfate 75 mg 07/06/24 09:00 Clopidogrel Bisulfate 75 Mg Tablet PO DAILY [facility] Diazepam 5 mg 07/05/24 09:02 07/05/24 20:58 Diazepam (*Crx) 5 Mg Tablet PO 5 mg Q6H PRN Administration Anxiety/Muscle Spasm Diphenhydramine HCl 25 mg 07/05/24 09:02 Diphenhydramine Hcl Inj 50 Mg/Ml Vial IV PUSH Q6H PRN Itching Famotidine 20 mg 07/05/24 21:00 07/06/24 07:33 Famotidine 20 Mg Tablet PO 20 mg Q12HR [facility] Administration Hydrochlorothiazide 12.5 mg 07/06/24 09:00 07/06/24 07:32 Hydrochlorothiazide 12.5 Mg Capsule PO 12.5 mg QAM [facility] Administration Hydromorphone HCl 1 mg 07/05/24 09:02 07/06/24 00:11 Hydromorphone Hcl Inj (*Crx) 1 Mg/Ml Syr IV PUSH 1 mg Q2H PRN Administration Breakthrough Pain Rated 7-10 or NPO Hydromorphone HCl 0.5 mg 07/05/24 09:02 Hydromorphone Hcl Inj (*Crx) 1 Mg/Ml Syr IV PUSH Q2H PRN Breakthrough Pain Rated 4-6 or NPO Sodium Chloride 1,000 mls @ 125 mls/hr 07/05/24 09:02 07/06/24 02:54 Normal Saline Iv IV CONT Not Given .Q8H [facility] Cefazolin Sodium 2 gm in 50 mls @ 100 mls/hr 07/05/24 16:00 07/06/24 07:32 Ancef 2 Gm/D5w 50 Ml IVPB 07/06/24 08:29 100 mls/hr Q8H [facility] Administration Ibuprofen 800 mg in 200 mls @ 400 mls/hr 07/06/24 16:00 Caldolor 800 Mg/200 Ml IVPB Q6H PRN Breakthrough Pain Rated 1-3 or NPO Ketorolac Tromethamine 15 mg 07/05/24 15:00 07/06/24 07:33 Ketorolac 15 Mg/Ml Vial (*Bkc) IV PUSH 07/06/24 15:01 15 mg Q6H [facility] Administration Metoprolol Tartrate 25 mg 07/06/24 09:00 07/06/24 07:32 Metoprolol Tartrate 25 Mg Tablet PO 25 mg DAILY [facility] Administration Naloxone HCl 0.1 mg 07/05/24 09:02 Naloxone Hcl 0.4 Mg/Ml Vial IV PUSH Q2M PRN Opiate Reversal Ondansetron HCl 4 mg 07/05/24 09:02 Ondansetron Inj 4 Mg/2 Ml Vial IV PUSH Q4H PRN Nausea And Vomiting Oxycodone/Acetaminophen 1 tablet 07/05/24 09:02 07/05/24 20:57 Oxycodone/Acetaminophen (*Crx) 5-325 Mg Tablet PO 1 tablet Q4H PRN Administration Pain Rated 4-6 Oxycodone/Acetaminophen 1 tab 07/05/24 09:02 Oxycodone/Acetaminophen (*Crx) 10-325 Mg Tablet PO Q6H PRN Pain Rated 7-10 Polyethylene Glycol 17 gm 07/06/24 09:00 07/06/24 07:32 Polyethylene Glycol 3350 17 Gm Powd.Pack PO Not Given QAM [facility] Senna/Docusate Sodium 2 tab 07/05/24 17:00 07/06/24 07:32 Senna/Docusate Sodium Tablet PO 2 tab BID [facility] Administration Simvastatin 40 mg 07/05/24 21:00 07/05/24 21:20 Simvastatin 20 Mg Tablet PO Not Given HS [facility] Radiology Results: ITS Impressions Hip X-Ray 07/05/24 10:58 IMPRESSION: 1. Total left hip arthroplasty in near-anatomic alignment. Head/Neck CTA 07/05/24 19:45 IMPRESSION: Normal CTA head and neck. Percent stenosis per NASCET criteria is 0%. No large vessel occlusion. No significant asymmetry. Labs Labs: Laboratory Results - last 24 hr 07/05/24 07/05/24 07/06/24 06:55 18:13 06:00 WBC 15.5 H RBC 3.64 L Hgb 11.4 L D Hct 34.7 L MCV 95.3 MCH 31.3 MCHC 32.9 RDW 13.1 Plt Count 190 MPV 10.9 H Immature Gran % (Auto) 0.8 H Neut % (Auto) 82.3 H Lymph % (Auto) 7.2 L [place] % (Auto) 9.6 H Eos % (Auto) 0.0 Baso % (Auto) 0.1 L Lymph # (Auto) 1.12 [place] # (Auto) 1.5 H Eos # (Auto) 0.0 Baso # (Auto) 0.0 Abs Immat Gran (auto) 0.12 H Absolute Neuts (auto) 12.8 H Absolute Nucleated RBC 0.000 Nucleated RBC % 0.0 Sodium 139 Potassium 4.0 Chloride 102 Carbon Dioxide 29 Anion Gap 8 BUN 37 H Creatinine 1.17 1.27 Estim Creat Clear Calc 59 55 Estimated GFR > 60 56 L Glucose 160 H Calcium 8.7 Blood Type O Positive Antibody Screen Negative
--- NOTE | 2024-07-06 08:35 | ECG_ITS ---
Test Date: 2024-07-06 09:35:42 Measurements Intervals [place] Rate: 60 P: 0 GA: 122 QRS: 31 QRSD: 80 T: 47 QT: 402 QTc: 405 Interpretive Statements SINUS RHYTHM BASELINE ARTIFACT- I, III, AVR, AVL, V3 NORMAL ECG Compared to ECG 05/01/2024 14:50:31 No significant changes Electronically Signed On 07-06-2024 10:07:20 [employer] by Dewayne Reddy D.O.
--- NOTE | 2024-07-06 09:26 | P.PNOP_ITS ---
Progress Note: A&P Assessment and Plan (1) S/P total hip arthroplasty: Qualifiers: Laterality: left Qualified Code(s): Z96.642 - Presence of left artificial hip joint Code(s): Z96.649 - Presence of unspecified artificial hip joint Status: Acute Assessment and Plan: POD #1 : Left CLARKE Continue PT/OT. WBAT. Walker. HIGH FALL RISK. Continue pain control. Ice Hip. Protect skin. DVT prophylaxis with . SCDs. Incentive Spirometry Use reviewed. Monitor Dressing. Change prior to discharge. Bowel Regimen. Dispo: Home with Home Health pending progress with PT/OT (2) Heaviness of upper extremity: Code(s): R29.898 - Other symptoms and signs involving the musculoskeletal system Status: Acute Assessment and Plan: Brain MRI pending. Plan Reviewed history, exam, radiographs and current labs with attending MD and covering surgeon, Dr. Martin, who agrees with current plan as indicated above. No further recommendations from Dr. Martin at this time. Subjective Subjective Date/Time Seen: 07/06/24 09:26 Post Op day: 1 Interval history: POD #1: Left CLARKE Patient doing well in regards to his left CLARKE. Patient with complaints of heaviness in the left UE and lack of coordination. He has a history of TIA. Awaiting brain MRI at this time. No concerns in regards to his CLARKE. Pain well controlled. Review of Systems Constitutional: Constitutional: Denies chills, Denies fatigue, Denies fever(s), Denies night sweats and Denies weakness Cardiovascular: Cardiovascular: Denies chest pain, Denies lightheadedness, Denies palpitations and Denies dyspnea Respiratory: Respiratory: Denies cough, Denies dyspnea and Denies wheezing Gastrointestinal: Gastrointestinal: Denies abdominal pain, Denies diarrhea, Denies nausea and Denies vomiting Musculoskeletal: Musculoskeletal: Reports arthralgias (left hip ), Reports joint swelling (left hip ) and Denies numbness Neurologic: Denies numbness and Denies weakness Endocrine: Endocrine: Denies fatigue and Denies palpitations Allergic/Immunologic: Allergic/Immunologic: Denies wheezing Exam Const: General: comfortable and no acute distress Orientation/consciousness: patient oriented x3 Limitations: no limitations Resp: Effort & Inspection: normal respiratory effort Cardio: Rate: regular rate Rhythm: regular rhythm GI: Inspection: non-distended Skin: General skin exam: normal color and wounds noted (incision left hip C/D/I ) Wounds: wounds noted (incision left hip C/D/I ) Neuro: General: patient oriented x3 Extrem: Left lower extremity: hip/thigh Details: tenderness Location: of the hip Location: laterally and anteriorly, swelling (thigh soft ) Location: of the hip (lateral. ), abnormal ROM (limitations with internal/external rotation and flexion/extension due to recent surgical intervention ) and other (incision lateral hip c/d/i. ), knee Details: normal to inspection and normal ROM; no tenderness and no swelling, lower leg (Negative Vinny's Sign ) Details: no edema, ankle (+ankle dorsiflexion/plantarflexion ) Details: normal to inspection, no edema and normal ROM; no tenderness, no swelling and no warmth and foot Details: normal capillary refill, toes with normal ROM, vascular exam Details: dorsalis pedis pulse present and motor-sensory exam light-touch normal in all toes; no tenderness, no ecchymosis and no crepitus Psych: Mental Status: mental status grossly normal Affect: normal affect Objective Data Vital Signs Vital Signs: Vital Signs - 24 hr 07/05/24 10:12 07/05/24 10:25 07/05/24 10:40 Temperature 36.8 C Pulse Rate 68 77 74 Respiratory Rate 10 L 14 12 Blood Pressure 140/74 147/87 H 145/83 H Pulse Oximetry 99 99 97 Oxygen Delivery Simple Face Mask Simple Face Mask Simple Face Mask Oxygen Flow Rate 6 6 6 07/05/24 10:55 07/05/24 11:10 07/05/24 11:25 Temperature Pulse Rate 78 73 72 Respiratory Rate 12 14 10 L Blood Pressure 148/81 H 146/90 H 145/83 H Pulse Oximetry 99 97 94 Oxygen Delivery Simple Face Mask Simple Face Mask Nasal Cannula Oxygen Flow Rate 6 6 2 07/05/24 11:40 07/05/24 11:55 07/05/24 12:10 Temperature Pulse Rate 85 77 75 Respiratory Rate 13 16 13 Blood Pressure 130/82 131/83 126/78 Pulse Oximetry 97 94 95 Oxygen Delivery Nasal Cannula Nasal Cannula Nasal Cannula Oxygen Flow Rate 2 2 2 07/05/24 12:25 07/05/24 12:40 07/05/24 12:55 Temperature Pulse Rate 83 84 79 Respiratory Rate Blood Pressure 154/85 H 131/82 118/68 Pulse Oximetry 95 96 96 Oxygen Delivery Nasal Cannula Nasal Cannula Nasal Cannula Oxygen Flow Rate 2 2 2 07/05/24 13:15 07/05/24 13:45 07/05/24 14:15 Temperature Pulse Rate 72 66 74 Respiratory Rate 16 16 16 Blood Pressure 124/61 130/75 127/79 Pulse Oximetry 96 99 98 Oxygen Delivery Nasal Cannula Nasal Cannula Nasal Cannula Oxygen Flow Rate 2 2 2 07/05/24 15:12 07/05/24 18:47 07/05/24 19:58 Temperature 36.8 C 36.5 C Pulse Rate 72 74 78 Respiratory Rate 18 18 16 Blood Pressure 120/76 120/68 115/69 Pulse Oximetry 96 96 96 Oxygen Delivery Oxygen Flow Rate 07/06/24 01:08 07/06/24 05:52 07/06/24 08:32 Temperature 36.5 C 36.9 C Pulse Rate 65 67 Respiratory Rate 14 18 Blood Pressure 112/50 L 116/49 L Pulse Oximetry 95 96 Oxygen Delivery Room Air Oxygen Flow Rate Intake/Output Intake/Output: Intake & Output 07/03/24 07/04/24 07/05/24 07/06/24 23:59 23:59 23:59 23:59 Intake Total 940 50 Balance 940 50 Meds/Results Medications: Active Medications Generic Name Dose Route Start Last Admin Trade Name Freq PRN Reason Stop Dose Admin Acetaminophen 500 mg 07/05/24 09:02 Acetaminophen 500 Mg Tablet PO Q6H PRN Pain Rated 1-3 Amlodipine Besylate 5 mg 07/06/24 09:00 07/06/24 07:33 Amlodipine Besylate 5 Mg Tablet PO 5 mg DAILY [facility] Administration Aspirin 81 mg 07/06/24 09:00 07/06/24 08:50 Aspirin 81 Mg Enteric Tablet PO Not Given DAILY [facility] Clopidogrel Bisulfate 75 mg 07/06/24 09:00 Clopidogrel Bisulfate 75 Mg Tablet PO DAILY [facility] Diazepam 5 mg 07/05/24 09:02 07/05/24 20:58 Diazepam (*Crx) 5 Mg Tablet PO 5 mg Q6H PRN Administration Anxiety/Muscle Spasm Diphenhydramine HCl 25 mg 07/05/24 09:02 Diphenhydramine Hcl Inj 50 Mg/Ml Vial IV PUSH Q6H PRN Itching Famotidine 20 mg 07/05/24 21:00 07/06/24 07:33 Famotidine 20 Mg Tablet PO 20 mg Q12HR [facility] Administration Hydrochlorothiazide 12.5 mg 07/06/24 09:00 07/06/24 07:32 Hydrochlorothiazide 12.5 Mg Capsule PO 12.5 mg QAM [facility] Administration Hydromorphone HCl 1 mg 07/05/24 09:02 07/06/24 00:11 Hydromorphone Hcl Inj (*Crx) 1 Mg/Ml Syr IV PUSH 1 mg Q2H PRN Administration Breakthrough Pain Rated 7-10 or NPO Hydromorphone HCl 0.5 mg 07/05/24 09:02 Hydromorphone Hcl Inj (*Crx) 1 Mg/Ml Syr IV PUSH Q2H PRN Breakthrough Pain Rated 4-6 or NPO Ibuprofen 800 mg in 200 mls @ 400 mls/hr 07/06/24 16:00 Caldolor 800 Mg/200 Ml IVPB Q6H PRN Breakthrough Pain Rated 1-3 or NPO Ketorolac Tromethamine 15 mg 07/05/24 15:00 07/06/24 07:33 Ketorolac 15 Mg/Ml Vial (*Bkc) IV PUSH 07/06/24 15:01 15 mg Q6H [facility] Administration Metoprolol Tartrate 25 mg 07/06/24 09:00 07/06/24 07:32 Metoprolol Tartrate 25 Mg Tablet PO 25 mg DAILY [facility] Administration Naloxone HCl 0.1 mg 07/05/24 09:02 Naloxone Hcl 0.4 Mg/Ml Vial IV PUSH Q2M PRN Opiate Reversal Ondansetron HCl 4 mg 07/05/24 09:02 Ondansetron Inj 4 Mg/2 Ml Vial IV PUSH Q4H PRN Nausea And Vomiting Oxycodone/Acetaminophen 1 tablet 07/05/24 09:02 07/05/24 20:57 Oxycodone/Acetaminophen (*Crx) 5-325 Mg Tablet PO 1 tablet Q4H PRN Administration Pain Rated 4-6 Oxycodone/Acetaminophen 1 tab 07/05/24 09:02 Oxycodone/Acetaminophen (*Crx) 10-325 Mg Tablet PO Q6H PRN Pain Rated 7-10 Polyethylene Glycol 17 gm 07/06/24 09:00 07/06/24 07:32 Polyethylene Glycol 3350 17 Gm Powd.Pack PO Not Given QAM [facility] Senna/Docusate Sodium 2 tab 07/05/24 17:00 07/06/24 07:32 Senna/Docusate Sodium Tablet PO 2 tab BID [facility] Administration Simvastatin 40 mg 07/05/24 21:00 07/05/24 21:20 Simvastatin 20 Mg Tablet PO Not Given HS [facility] Radiology Results: ITS Impressions Hip X-Ray 07/05/24 10:58 IMPRESSION: 1. Total left hip arthroplasty in near-anatomic alignment. Head/Neck CTA 07/05/24 19:45 IMPRESSION: Normal CTA head and neck. Percent stenosis per NASCET criteria is 0%. No large vessel occlusion. No significant asymmetry. Labs Labs: Laboratory Results - last 24 hr 07/05/24 07/06/24 18:13 06:00 WBC 15.5 H RBC 3.64 L Hgb 11.4 L D Hct 34.7 L MCV 95.3 MCH 31.3 MCHC 32.9 RDW 13.1 Plt Count 190 MPV 10.9 H Immature Gran % (Auto) 0.8 H Neut % (Auto) 82.3 H Lymph % (Auto) 7.2 L [place] % (Auto) 9.6 H Eos % (Auto) 0.0 Baso % (Auto) 0.1 L Lymph # (Auto) 1.12 [place] # (Auto) 1.5 H Eos # (Auto) 0.0 Baso # (Auto) 0.0 Abs Immat Gran (auto) 0.12 H Absolute Neuts (auto) 12.8 H Absolute Nucleated RBC 0.000 Nucleated RBC % 0.0 Sodium 139 Potassium 4.0 Chloride 102 Carbon Dioxide 29 Anion Gap 8 BUN 37 H Creatinine 1.17 1.27 Estim Creat Clear Calc 59 55 Estimated GFR > 60 56 L Glucose 160 H Calcium 8.7
[2024-07-06] MEDS: CLOPIDOGREL BISULFATE 75 MG TABLET PO (10:07)
--- NOTE | 2024-07-06 10:13 | WPDANESPN ---
Anes - Prog Note Post-Op Date/Time: 07/06/24 10:13 Cardiovascular status: normal Respiratory status: normal Airway patency: baseline Mental status: baseline Post-Op hydration status: normal Vital Signs: Last Vital Signs Temp 98.4 F 07/06/24 05:52 Pulse 67 07/06/24 05:52 Resp 18 07/06/24 05:52 BP 116/49 L 07/06/24 05:52 Pulse Ox 96 07/06/24 05:52 O2 Del Method Room Air 07/06/24 08:32 O2 Flow Rate 2 07/05/24 14:15 Pain Score (VAS): 0/10 I/O: Intake & Output 07/05/24 07/06/24 07/06/24 23:59 07:59 15:59 Intake Total 290 50 Balance 290 50 Laboratory Tests 07/06/24 06:00 07/06/24 06:00 07/05/24 07/06/24 18:13 06:00 WBC 15.5 H RBC 3.64 L Hgb 11.4 L D Hct 34.7 L MCV 95.3 MCH 31.3 MCHC 32.9 RDW 13.1 Plt Count 190 MPV 10.9 H Immature Gran % (Auto) 0.8 H Neut % (Auto) 82.3 H Lymph % (Auto) 7.2 L [place] % (Auto) 9.6 H Eos % (Auto) 0.0 Baso % (Auto) 0.1 L Lymph # (Auto) 1.12 [place] # (Auto) 1.5 H Eos # (Auto) 0.0 Baso # (Auto) 0.0 Abs Immat Gran (auto) 0.12 H Absolute Neuts (auto) 12.8 H Absolute Nucleated RBC 0.000 Nucleated RBC % 0.0 Sodium 139 Potassium 4.0 Chloride 102 Carbon Dioxide 29 Anion Gap 8 BUN 37 H Creatinine 1.17 1.27 Estim Creat Clear Calc 59 55 Estimated GFR > 60 56 L Glucose 160 H Calcium 8.7 Post-procedural complaints: none Patient Feedback: Patient satisfied with anesthetic care.
[2024-07-06] MEDS: oxyCODONE/ACETAMINOPHEN (*CRX) 5-325 MG TABLET 1 TABLET PO ×2 (13:13→17:15)
[2024-07-06 14:00] VITALS: BP 150/70; PULSE 67; RESP 20; TEMP 36.3; O2SAT 99
[2024-07-06 14:27] LABS: Cholesterol 117 mg/dL (0-200); HDL Direct 52 mg/dL; Triglycerides 165 mg/dL (<150)
[2024-07-06 14:35] LABS: Hemoglobin A1C 5.7 % (<5.7)
[2024-07-06 14:38] LABS: LDL Cholesterol Direct 49 mg/dL
[2024-07-06] MEDS: ATORVASTATIN 40 MG TABLET 80 MG PO (20:12)
[2024-07-06 22:33] LABS: Troponin I < 0.012 ng/mL (0.000-0.034)
[2024-07-06 22:43] VITALS: BP 114/59; PULSE 65; RESP 18; TEMP 36.7; O2SAT 95
--- NOTE | 2024-07-07 | ECHO_ITS ---
Patient Info Name: Kareem Goldberg Age: 69 years : 1955 Gender: Male Ht: 72 in Wt: 213 lbs BSA: 2.23 m2 HR: 69 bpm BP: 135 / 65 mmHg Technical Quality: Good Exam Date: 07/07/2024 7:25 AM Exam Location: Echo Lab Patient Status: Inpatient Admit Date: 07/06/2024 Staff Ordering Physician: Robi Thomas MD Rehabilitation Program Coordinator: Mikaela Johnson RDCS Attending Provider: Otilio Martin MD Exam Type: CA echo doppler w bubble study Study Info Indications - STROKE Complete two-dimensional, color flow and Doppler transthoracic echocardiogram is performed with agitated saline. Summary 1. Left ventricular chamber dimension is normal. 2. Left ventricular systolic function is normal, estimated at 60-65%. 3. There is mild concentric increased left ventricular wall thickness. 4. The left ventricular diastolic function is grade I diastolic dysfunction. 5. E/e' 7 is not elevated. 6. No pulmonary hypertension, estimated pulmonary arterial systolic pressure is 26 mmHg. Left Ventricle E/e' 7 is not elevated. Left ventricular chamber dimension is normal. Left ventricular systolic function is normal, estimated at 60-65%. There is mild concentric increased left ventricular wall thickness. The left ventricular diastolic function is grade I diastolic dysfunction. Right Ventricle Right ventricular chamber dimension is normal. Right ventricular systolic function is normal. Left Atria Left atrial chamber dimension is normal. Right Atria Right atrial chamber dimension is normal. Atrial Septum Agitated saline injection with and without valsalva maneuver opacified right side cardiac chambers without shunt to left side cardiac chambers. Intact interatrial septum visualized by 2D and agitated saline imaging. Aortic Valve The aortic valve is trileaflet. There is no aortic valve stenosis. There is no aortic valve regurgitation. Pulmonic Valve There is no pulmonic regurgitation. Mitral Valve There is no mitral valve stenosis. There is no mitral valve regurgitation. Tricuspid Valve There is no tricuspid valve regurgitation. No pulmonary hypertension, estimated pulmonary arterial systolic pressure is 26 mmHg. Pericardium/Pleural There is no pericardial effusion. Inferior Vena Cava Normal inferior vena cava with >50% collapse upon inspiration consistent with normal right atrial pressure, 5 mmHg. Aorta The aortic root size at the sinus of Valsalva is normal. Left Ventricular Outflow Tract Name Value Normal LVOT 2D LVOT Diameter 2.0 cm LVOT Doppler LVOT Peak Gradient 6 mmHg LVOT Mean Gradient 3 mmHg LVOT VTI 29 cm LVOT VTI/AV VTI Ratio 0.8 LVOT Stroke Volume 89 ml LVOT CO 5.9 l/min LVOT CI 2.7 l/min/m2 Pulmonic Valve Name Value Normal RVOT Doppler RVOT Peak Gradient 2 mmHg PV Doppler PV Peak Gradient 4 mmHg Mitral Valve Name Value Normal MV Doppler MV Decel Crook 498 cm/s2 MV PHT 50 ms MV Area (PHT) 4.4 cm2 4.0-5.0 MV Diastolic Function MV E Peak Velocity 86 cm/s MV A Peak Velocity 99 cm/s MV E/A 0.9 MV Decel Time 173 ms Tricuspid Valve Name Value Normal TV Regurgitation Doppler TR Peak Velocity 230 cm/s TR Peak Gradient 21 mmHg Estimated PAP/RSVP RA Pressure 5 mmHg <=5 PA Systolic Pressure 26 mmHg <36 RV Systolic Pressure 26 mmHg <36 Aorta Name Value Normal Ascending Aorta Ao Root Diameter (MM) 3.8 cm Ao Root Diam Index (MM) 1.7 cm/m2 Aortic Valve Name Value Normal AV Doppler AV Peak Velocity 138 cm/s AV Peak Gradient 8 mmHg AV Mean Gradient 5 mmHg AV VTI 34 cm AV Area (Cont Eq VTI) 2.6 cm2 >=3.0 AV Area (Cont Eq Sabas) 2.7 cm2 AV Regurgitation 2D LVOT Area 3.1 cm2 Ventricles Name Value Normal LV Dimensions 2D/MM IVS Diastolic Thickness (2D) 1.3 cm 0.6-1.0 IVS Diastole Thickness (MM) 1.1 cm 0.6-1.0 LVID Diastole (2D) 3.4 cm 4.2-5.8 LVID Diastole (MM) 5.3 cm 4.2-5.8 LVIW Diastolic Thickness (2D) 1.0 cm 0.6-1.0 LVIW Diastolic Thickness (MM) 1.2 cm 0.6-1.0 LVID Systole (2D) 2.3 cm 2.5-4.0 LVID Systole (MM) 3.3 cm 2.5-4.0 LVOT Diameter 2.0 cm LV Mass (2D Cubed) 124.45 g 88.00-224.00 LV Mass Index (2D Cubed) 56 g/m2 49-115 Relative Wall Thickness (2D) 0.61 LV Mass (MM Cubed) 243.76 g 88.00-224.00 LV Mass Index (MM Cubed) 109 g/m2 49-115 Relative Wall Thickness (MM) 0.44 LV Fractional Shortening/Ejection Fraction 2D/MM LV Fractional Shortening (2D) 32 % 25-43 LV Fractional Shortening (MM) 38 % 25-43 LV EF (MM Teicholz) 68 % 52-72 LV EF (2D Teicholz) 62 % 52-72 LV Diastolic Volume (4C MOD) 55 ml LV EF (4C MOD) 50 % LV Diastolic Volume (2C MOD) 50 ml LV EF (2C MOD) 65 % LV Diastolic Volume (BP MOD) 53 ml 62-150 LV Diastolic Volume Index (BP MOD) 24 ml/m2 34-74 LV Systolic Volume (BP MOD) 23 ml 21-61 LV Systolic Volume Index (BP MOD) 10 ml/m2 11-31 LV EF (BP MOD) 57 % 52-72 LV Diastolic Length (4C) 8.3 cm LV Systolic Length (4C) 6.8 cm LV Stroke Volume (4C MOD) 27 ml Atria Name Value Normal LA Dimensions LA Dimension (MM) 4.4 cm 3.0-4.1 LA Volume (4C A-L) 24 ml LA Volume (BP A-L) 28 ml RA Dimensions RA Area (4C) 10.0 cm2 <=18.0 Report Signatures
[2024-07-07] MEDS: diazePAM (*CRX) 5 MG TABLET PO (00:07)
[2024-07-07] MEDS: oxyCODONE/ACETAMINOPHEN (*CRX) 5-325 MG TABLET 1 TABLET PO ×2 (00:07→07:46)
[2024-07-07 04:57] VITALS: BP 135/65; PULSE 65; RESP 20; TEMP 36.6; O2SAT 95
[2024-07-07] MEDS: FAMOTIDINE 20 MG TABLET PO (07:46)
[2024-07-07] MEDS: hydroCHLOROthiazide 12.5 MG CAPSULE PO (07:46)
[2024-07-07] MEDS: METOPROLOL TARTRATE 25 MG TABLET PO (07:46)
[2024-07-07] MEDS: amLODIPine BESYLATE 5 MG TABLET PO (07:46)
[2024-07-07] MEDS: CLOPIDOGREL BISULFATE 75 MG TABLET PO (07:46)
[2024-07-07] MEDS: ASPIRIN 81 MG ENTERIC TABLET PO (07:46)
[2024-07-07 10:08] LABS: Hematocrit 36.9 % (42.0-52.0); Mean Corpuscular HGB Conc 32.5 g/dl (32-36); Mean Corpuscular Hemoglobin 31.3 pg (26-34); Mean Corpuscular Volume 96.1 fl (80-100); Mean Platelet Volume 10.8 fl (7.4-10.4); Platelet Count Result 202 k/mm3 (150-375); Red Blood Count 3.84 M/mm3 (4.6-6.20); Red Cell Distribution Width 13.4 % (11.5-14.5); White Blood Count 13.7 K/mm3 (4.5-10.0)
--- NOTE | 2024-07-07 10:36 | P.DS_ITS ---
DS: Admitting Diagnosis Discharge Date 07/07/2024 Admitting Diagnosis Admitted for left hip surgery DS: Discharge Diagnosis Discharge Diagnosis (1) Heaviness of upper extremity: Code(s): R29.898 - Other symptoms and signs involving the musculoskeletal system Status: Acute (2) HTN (hypertension): Code(s): I10 - Essential (primary) hypertension Status: Acute (3) High cholesterol: Code(s): E78.00 - Pure hypercholesterolemia, unspecified Status: Acute (4) S/P total hip arthroplasty: Qualifiers: Laterality: left Qualified Code(s): Z96.642 - Presence of left artificial hip joint Code(s): Z96.649 - Presence of unspecified artificial hip joint Status: Acute Plan Kareem Goldberg is a 69 year old male presents the hospital for planned left hip surgery. After OR he immediately complained of left arm heaviness. He has trouble describing the symptoms. He states that slow to move. Denies numbness, tingling, changes in sensation from touch. Hospitalist team was consulted for possible stroke. Patient states this had TIAs in the past, and since then he has been compliant with his medications he is on a statin, daily aspirin, and Pl avix. Plavix has been hold on last week for planned surgery. Left arm heaviness new since surgery. Mild and stable. CTA head and neck was negative. Does have history of TIA in the past and similar problem on the right side in the past. He is on dual antiplatelet therapy which will be recommended to be continued. He also has history of coronary artery disease and stent placement in October of 2023. Will need to continue aspirin and Plavix. Plavix if okay with orthopedics. Orthopedic is okay with starting Plavix Coronary artery disease stent placement Hypertension Hyperlipidemia BPH Patient will be followed up by neurology as out patient DS: Summary Hospital Course Reason for hospitalization: Left hip arthoplasty Hospital Course: Kareem Goldberg is a 69 year old male presents the hospital for planned left hip surgery. After OR he immediately complained of left arm heaviness. He has trouble describing the symptoms. He states that slow to move. Denies numbness, tingling, changes in sensation from touch. Hospitalist team was consulted for possible stroke. Patient states this had TIAs in the past, and since then he has been compliant with his medications he is on a statin, daily aspirin, and Plavix. Plavix has been hold on last week for planned surgery. Left arm heaviness new since surgery. Mild and stable. CTA head and neck was negative. 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 He is on dual antiplatelet therapy which will be recommended to be continued. He also has history of coronary artery disease and stent placement in October of 2023. Will need to continue aspirin and Plavix. Plavix if okay with orthopedics. Orthopedic is okay with starting Plavix Coronary artery disease stent placement Hypertension Hyperlipidemia BPH Today patient is feeling better and was discharged home in stable condition. Patient will be followed up by neurology as out patient patient will follow-up with primary care and surgery as an outpatient next week. Repeat CBC next week. Status at Discharge Cognitive/behavioral status at discharge: Stable Time Spent with Patient Time attestation: Total time spent providing and/or coordinating discharge services: 30 minutes Exam Narrative: General: well appearing, appears stated age. HEENT: normocephalic, atraumatic. Mucous membranes moist. EOMI, PERRLA, bilateral sclera anicteric, no conjunctival injection. Neck supple without JVD, lymphadenopathy, or bruit. Respiratory: clear to ascultation bilaterally. No rales/rhonic/wheezes. Cardiovascular: Regular rate and rhythm, normal S1-S2 upon ascultation. No murmurs, rubs, or clicks. Abdomen: Soft, round, no pulsatile masses, nondistended and nontender. No rebound, no guarding. No CVA tenderness, no hepatosplenomegaly. Bowel sounds present to all four quadrants. No high pitch or tinkling sounds, resonant to percussion. Extremities: No cyanosis, clubbing, or edema present. Pulses are palpable 2/2. Full range of motion is intact in upper extremities bilaterally. Sensation intact Neuro: Alert and orientated x 4. PERRLA. Cranial nerves 2-12 intact without focal deficit. Skin: Warm, dry, and intact, without rash, erythema, or lesion. Psych: pleasant, cooperative, normal speech, normal affect, no hallucinations, no dysarthia NIH 0 DS: Data Data Completed and Pending Labs on day of discharge: Labs from last 24 hours 02/14/25 02/13/25 02/13/25 09:58 14:09 14:04 WBC 13.7 H RBC 3.84 L Hgb 12.0 L Hct 36.9 L MCV 96.1 MCH 31.3 MCHC 32.5 RDW 13.4 Plt Count 202 MPV 10.8 H Hemoglobin A1c 5.7 Troponin I < 0.012 Triglycerides 165 H Cholesterol 117 LDL Cholesterol Direct 49 HDL Direct 52 Discharge Plan Discharge Attending physician on discharge: Reji Galindo Consulting providers: Mickie Murillo Discharging Clinician: Reji Galindo Patient Disposition: Home, Self-Care Activity: as tolerated Diet: as tolerated and heart healthy Discharge Instructions: Per Care Coordination, patient to discharge with [facility] ) for PT/OT and usp services. Agency will call to arrange initial visit. Post Op Total Hip Replacement Instructions Dr. Otilio Martin [phone] * Your dressing will be changed prior to your discharge. You will be sent home with one additional dressing to be changed on post op day 7 by the [facility] RN. You may remove the dressing on post op day 14. Your incision was closed with dermabond, allow the dermabond to fall off naturally once your dressing is removed. Do not pull at the dermabond or disrupt incision healing. * You may shower with your dressing but do not submerge in a bath tub. * Do not drive or operate machinery until you are released by Dr. Martin. * Do not walk without a walker for any reason until you are released by Dr. Martin. * Continue to apply ice to the hip intermittently for additional pain relief. Protect your skin with a towel or pillow case. * Continue to follow strict total hip replacement precautions. * Your first post op appointment was sent to you via mail preoperatively. If you have any questions or are unable to make your appointment, please contact our office for scheduling questions. * Your medications have been sent to your pharmacy. You have been sent home with pain medication. Please molded goods spot picker an over the counter stool softener to prevent constipation due to narcotic use. Please keep this in mind during your postoperative recovery. If you are not experiencing regular bowel movements, please contact our office for further instructions. * Please contact our office with any questions/concerns regarding your hip at [phone]. Patient Language: Ukrainian Stand Alone Forms: General Discharge Information Follow-up/Referrals: Otilio Martin MD [Physician] - Keep Reg. Scheduled Appt. [facility] [Provider Group] Alina,MD Jed [Non-Staff] - Discharge Medications: New oxycodone-acetaminophen 5-325 mg Tablet 1 - 2 tablet PO Q4-6H PRN (Reason: pain) Qty: 40 0RF Continued simvastatin 40 mg tablet 40 mg PO DAILY metoprolol tartrate 25 mg tablet 25 mg PO DAILY amlodipine 5 mg tablet 5 mg PO DAILY tamsulosin 0.4 mg capsule 0.4 mg PO DAILY clopidogrel [Plavix] 75 mg tablet 75 mg PO DAILY Patient Comments: HOLD for 7 days preop per Cardiology aspirin 81 mg tablet,chewable 81 mg PO DAILY hydrochlorothiazide 12.5 mg tablet 12.5 mg PO DAILY Date of admission: 07/06/24 16:22 Primary Care Provider: Eddy Pelaez Admitting Provider: Otilio Martin Attending physician on admission: Otilio Martin Condition: Stable Quality VTE Prophylaxis VTE prophylaxis: mechanical ordered and pharmacologic ordered
--- NOTE | 2024-07-07 12:24 | PCPTNOTE ---
On 07/07/24, the student, DARIANA Pimentel, provided care and completed [facility] documentation on this patient. I have reviewed the student's documentation and agree with the findings.
== END 2024-07-07 11:40 | disposition home health service (06) | DRG 983 ==
LOC: ANHSURGERY 16:31 → ANH3MEDSUR 16:31
PROVIDERS: Internal Medicine; Nurse Practitioner Gerontology; Admitting Provider Orthopaedic Surgery; Visit Provider Internal Medicine
PROC: 0SRB04A Replacement of Left Hip Joint with Ceramic on Polyethylene Synthetic Substitute, Uncemented, Open Approach (ICD-10-PCS; CPT 27130; principal; 2024-07-05 07:30)
DX: I97.821 Postprocedural cerebrovascular infarction following other surgery (principal); R29.898 Other symptoms and signs involving the musculoskeletal system; M16.12 Unilateral primary osteoarthritis, left hip; N40.0 Benign prostatic hyperplasia without lower urinary tract symptoms; I10 Essential (primary) hypertension; I25.10 Atherosclerotic heart disease of native coronary artery without angina pectoris; E78.5 Hyperlipidemia, unspecified; Z87.891 Personal history of nicotine dependence; Z86.73 Personal history of transient ischemic attack (TIA), and cerebral infarction without residual deficits; Z90.49 Acquired absence of other specified parts of digestive tract; Z79.82 Long term (current) use of aspirin; Z95.5 Presence of coronary angioplasty implant and graft
CPT/HCPCS: 36415; 70496; 70498; 70551; 72141; 72146; 73502; 80048; 80061; 82565; 83036; 84484; 85025; 85027; 86850; 86900; 86901; 93005; 93306; 96375; 97110; 97116; 97161; 97165; 97530; 97535; A9270; C1713; C1776; J0171; J0690; J1100; J1171; J1596; J1885; J2250; J2270; J2371; J2405; J2704; J2795; J3010; J7120; Q9967